=== PATIENT | male | born 1970 | race African-American/Black ===

== ENCOUNTER 2020-12-17 16:31 | Emergency (ER) | payer MEDICAID ==
[2020-12-17] MEDS ORDERED: Sodium Chloride 0.9% 10 ML Syringe FLUSH PRN (16:39)
[2020-12-17] MEDS ORDERED: Sodium Chloride 0.9% 2.5 ML Syringe FLUSH PRN (16:39)
[2020-12-17] MEDS ORDERED: Aspirin 81 MG Tab.Chew PO ONE (16:39)
[2020-12-17] MEDS ORDERED: Pantoprazole 80 MG in Sodium Chloride 0.9% 20 ML IVPUSH ONE (16:39)
[2020-12-17] MEDS ORDERED: Sodium Chloride 0.9% 1,000 ML IV ONE (16:39)
[2020-12-17] MEDS ORDERED: Ondansetron 4 MG/2 ML SDV IVPUSH ONE (16:44)
[2020-12-17] MEDS ORDERED: Morphine 4 MG/ML Syringe IVPUSH ONE ×2 (16:44→18:51)
--- NOTE | 2020-12-17 16:47 | PCM.EKG ---
#1 Interpretation EKG Date: 12/17/20 Time: 16:31 Rhythm: NSR Rate (Beats/Min): 68 [place]: Normal P-Wave: Present QRS: Normal ST-T: Normal QT: Normal GA/PQ Interval: 175 EKG Interpretation Comments: TWI lead III
--- NOTE | 2020-12-17 16:47 | EDM.PDOC ---
ED HPI GENERAL MEDICAL PROBLEM - General Chief Complaint: Chest Pain Stated Complaint: CHEST PAIN, BACK PAIN, VOMITTING Time Seen by Provider: 12/17/20 16:33 Source of Information: Reports: Patient History Limitations: Reports: No Limitations - History of Present Illness INITIAL COMMENTS - FREE TEXT/NARRATIVE: HISTORY AND PHYSICAL: History of present illness: Patient is a 50-year-old male who presents to the emergency room with complaints of midsternal chest pain, right distal scapular back pain, nausea and vomiting. He states symptoms started last night with the back pain that now radiates into his midsternal chest. Since this morning he has not been able to keep any food or fluids down. He did take a nap this afternoon and felt that that had improved his pain but pain returned once he got up. States he had similar symptoms a few years ago and was told he has "stomach ulcers". States he had a procedure (doesn't recall what - thinks it was an endoscopy) that "helped alot". Prior to yesterday he has not had any issues or complaints. Patient denies any fever, chills, headache, change in vision, syncope or near syncope. Denies any diaphoresis, shortness of breath or cough. Denies any abdominal pain, diarrhea, constipation or dysuria. Has not noted any blood in urine or stool. Patient has been eating and drinking appropriately. Review of systems: As per history of present illness and below otherwise all systems reviewed and negative. Past medical history: As per history of present illness and as reviewed below otherwise noncontributory. Surgical history: As per history of present illness and as reviewed below otherwise noncontributory. Social history: See social history for further information Family history: As per history of present illness and as reviewed below otherwise noncontributory. Physical exam: General: Well developed and well nourished. Alert and orientated x 3. Nontoxic in appearance and in no acute distress. Vital signs are stable and have been reviewed by me. Nursing notes were reviewed. HEENT: Atraumatic, normocephalic, pupils equal and reactive bilaterally, negative for conjunctival pallor or scleral icterus, mucous membranes moist, trachea midline. No drooling or trismus noted. No meningeal signs. No hot potato voice noted. Lungs: Clear to auscultation bilaterally. No wheezes, rales, or rhonchi. Chest nontender. Normal work of breathing, no accessory muscles used. Heart: S1S2, regular rate and rhythm without overt murmur, gallops, or rubs. No JVD. No peripheral edema Abdomen: Soft, nondistended, RUQ tenderness with palpation. Normoactive bowel sounds. Negative for masses or costovertebral tenderness. Pelvis: Stable nontender. Genitourinary/Rectal: Deferred. Skin: Intact, warm, dry. No lesions or rashes noted. Hematologic: No petechiae or purpra. Mucosa appropriate color and normal nail bed color and refill. Extremities: Atraumatic, moves all extremities per self without difficulty or deficits, negative for cords or calf pain. Neurovascular unremarkable. Neuro: Awake, alert, oriented. Cranial nerves II through XII unremarkable. Cerebellum unremarkable. Motor and sensory unremarkable throughout. Exam nonfocal. Psychiatric: Mood and affect are appropriate. Normal thought process. Answering questions appropriately. Notes: *This patient was seen and evaluated during the 2019 SARS-CoV-2 novel coronavirus pandemic period. Community viral transmission is ongoing at time of this encounter and the emergency department is operating under pandemic response procedures. Patient is a 50-year-old male who presents to the emergency room with complaints of back pain that radiates to his midsternal chest, nausea and vomiting. Patient states he had similar symptoms several years ago which ended up being ulcers. He does not associate this with eating although he does have some right upper quadrant tenderness. Due to it being after hours I am unable to get an ultrasound but I will do a CT of the chest and abdomen to rule out dissection or any further complications from the reported chest pain. CT shows no intramural or mediastinal hematoma. No thoracic aortic aneurysm, dissection, or evidence on CT for right heart strain. No thoracic lymphadenopathy or acute airspace disease.There is no abdominal aortic aneurysm, dissection, or retroperitoneal hematoma/fat stranding. Visceral artery branches are patent. No findings are seen on CT to explain the patient`s symptoms I have talked with the patient about today's findings, in addition to providing specific details for plan of care. I did offer him admission which he declines. He states he does feel improved. Reassessment at the time of disposition demonstrates that the patient is in no acute distress. The patient is stable for discharge, counseling was provided and we discussed in great detail signs and symptoms that would prompt them to return to the Emergency Department. We did discuss following up with cardiology and general surgery for endoscopy as he does have concerns for GERD. Medication, follow up and supportive care measures were reviewed and discussed. Voices understanding and is agreeable to plan of ca re. Denies any further questions or concerns at this time. Diagnostics: CBC, CMP, troponin, D-dimer, chest x-ray, EKG Therapeutics: IV fluid, aspirin, Protonix Prescription: Omeprazole Impression: Dehydration Non-specific chest pain GERD Plan: 1. You were evaluated today on an emergent basis. Your lab work is unremarkable. CT of your chest shows no acute findings. I would like you to monitor you symptoms, you may need to follow up with a dietitian consultant for your cardiac needs. I would like you to follow up with general surgeon for a endoscopy. Take omeprazole as directed. 2. You can alternate Tylenol and ibuprofen as needed for pain and fever management. 3. We encourage you to follow up with your primary care provider and/or recommended specialist in the next few days for re-evaluation and further care/management. 4. If your symptoms should worsen, new symptoms develop or any of the signs and symptoms we discussed should arise please return to the emergency room or call 911 (if needed). Definitive disposition and diagnosis as appropriate pending reevaluation and review of above. chest Pain Score (Numeric/FACES): 7 - Related Data Allergies Allergy/AdvReac Type Severity Reaction Status Date / Time ibuprofen Allergy Nausea Verified 12/17/20 16:57 Home Meds: Home Meds . [No Known Home Meds] 12/17/20 [History] ED ROS GENERAL - Review of Systems Review Of Systems: Comprehensive ROS is negative, except as noted in HPI. ED EXAM, GI/ABD - Physical Exam Exam: See Below (See dictation) Course - Vital Signs Last Recorded V/S: Last Vital Signs Temp 97.4 F 12/17/20 16:35 Pulse 63 12/17/20 19:59 Resp 16 12/17/20 19:59 BP 139/96 H 12/17/20 19:59 Pulse Ox 98 12/17/20 19:59 - Orders/Labs/Meds Orders: Active Orders 24 hr Category Date Time Status Saline Lock Insert [OM.PC] Stat Oth 12/17/20 16:39 Ordered Labs: Laboratory Tests 08/08/0412/17/20 12/17/20 Range/Units 16:45 16:45 16:45 WBC 9.48 (4.0-11.0) K/uL RBC 5.67 (4.50-5.90) M/uL Hgb 17.8 H (13.0-17.0) g/dL Hct 51.2 H (38.0-50.0) % MCV 90.3 (80.0-98.0) fL MCH 31.4 (27.0-32.0) pg MCHC 34.8 (31.0-37.0) g/dL RDW Std Deviation 45.0 (28.0-62.0) fl RDW Coeff of Na 14 (11.0-15.0) % Plt Count 238 (150-400) K/uL MPV 11.20 (7.40-12.00) fL Neut % (Auto) 58.7 (48.0-80.0) % Lymph % (Auto) 32.0 (16.0-40.0) % Tripp % (Auto) 7.7 (0.0-15.0) % Eos % (Auto) 1.1 (0.0-7.0) % Baso % (Auto) 0.5 (0.0-1.5) % Neut # (Auto) 5.6 (1.4-5.7) K/uL Lymph # (Auto) 3.0 H (0.6-2.4) K/uL Tripp # (Auto) 0.7 (0.0-0.8) K/uL Eos # (Auto) 0.1 (0.0-0.7) K/uL Baso # (Auto) 0.1 (0.0-0.1) K/uL Nucleated RBC % 0.0 /100WBC Nucleated RBCs # 0 K/uL D-Dimer, Quantitative 0.37 (0.0-0.50) mg/L FEU Sodium 138 (136-148) mmol/L Potassium 3.4 L (3.5-5.1) mmol/L Chloride 99 (98-107) mmol/L Carbon Dioxide 33.7 H (21.0-32.0) mmol/L BUN 18 (7.0-18.0) mg/dL Creatinine 1.3 (0.8-1.3) mg/dL Est Cr Clr Drug Dosing 62.15 mL/min Estimated GFR (MDRD) > 60.0 ml/min Glucose 150 H (74-106) mg/dL Calcium 9.4 (8.5-10.1) mg/dL Total Bilirubin 1.0 (0.2-1.0) mg/dL AST 14 L (15-37) IU/L ALT 24 (14-63) IU/L Alkaline Phosphatase 122 H (46-116) U/L Troponin I < 0.050 (0.000-0.056) ng/mL Total Protein 7.2 (6.4-8.2) g/dL Albumin 3.8 (3.4-5.0) g/dL Globulin 3.4 (2.6-4.0) g/dL Albumin/Globulin Ratio 1.1 (0.9-1.6) Urine Color Urine Appearance Urine pH (5.0-8.0) Ur Specific [place] (1.001-1.035) Urine Protein (NEGATIVE) mg/dL Urine Glucose (UA) (NEGATIVE) mg/dL Urine Ketones (NEGATIVE) mg/dL Urine Occult Blood (NEGATIVE) Urine Nitrite (NEGATIVE) Urine Bilirubin (NEGATIVE) Urine Urobilinogen (<2.0) EU/dL Ur Leukocyte Esterase (NEGATIVE) Urine RBC (0-2/HPF) Urine WBC (0-5/HPF) Ur Epithelial Cells (NONE-FEW) Urine Bacteria (NEGATIVE) Urine Mucus (NONE-MOD) 12/17/20 Range/Units 18:28 WBC (4.0-11.0) K/uL RBC (4.50-5.90) M/uL Hgb (13.0-17.0) g/dL Hct (38.0-50.0) % MCV (80.0-98.0) fL MCH (27.0-32.0) pg MCHC (31.0-37.0) g/dL RDW Std Deviation (28.0-62.0) fl RDW Coeff of Na (11.0-15.0) % Plt Count (150-400) K/uL MPV (7.40-12.00) fL Neut % (Auto) (48.0-80.0) % Lymph % (Auto) (16.0-40.0) % Tripp % (Auto) (0.0-15.0) % Eos % (Auto) (0.0-7.0) % Baso % (Auto) (0.0-1.5) % Neut # (Auto) (1.4-5.7) K/uL Lymph # (Auto) (0.6-2.4) K/uL Tripp # (Auto) (0.0-0.8) K/uL Eos # (Auto) (0.0-0.7) K/uL Baso # (Auto) (0.0-0.1) K/uL Nucleated RBC % /100WBC Nucleated RBCs # K/uL D-Dimer, Quantitative (0.0-0.50) mg/L FEU Sodium (136-148) mmol/L Potassium (3.5-5.1) mmol/L Chloride (98-107) mmol/L Carbon Dioxide (21.0-32.0) mmol/L BUN (7.0-18.0) mg/dL Creatinine (0.8-1.3) mg/dL Est Cr Clr Drug Dosing mL/min Estimated GFR (MDRD) ml/min Glucose (74-106) mg/dL Calcium (8.5-10.1) mg/dL Total Bilirubin (0.2-1.0) mg/dL AST (15-37) IU/L ALT (14-63) IU/L Alkaline Phosphatase (46-116) U/L Troponin I (0.000-0.056) ng/mL Total Protein (6.4-8.2) g/dL Albumin (3.4-5.0) g/dL Globulin (2.6-4.0) g/dL Albumin/Globulin Ratio (0.9-1.6) Urine Color YELLOW Urine Appearance CLEAR Urine pH 6.0 (5.0-8.0) Ur Specific [place] 1.025 (1.001-1.035) Urine Protein TRACE H (NEGATIVE) mg/dL Urine Glucose (UA) NEGATIVE (NEGATIVE) mg/dL Urine Ketones NEGATIVE (NEGATIVE) mg/dL Urine Occult Blood NEGATIVE (NEGATIVE) Urine Nitrite NEGATIVE (NEGATIVE) Urine Bilirubin NEGATIVE (NEGATIVE) Urine Urobilinogen 0.2 (<2.0) EU/dL Ur Leukocyte Esterase NEGATIVE (NEGATIVE) Urine RBC 0-1 (0-2/HPF) Urine WBC 1-2 (0-5/HPF) Ur Epithelial Cells FEW (NONE-FEW) Urine Bacteria RARE (NEGATIVE) Urine Mucus MODERATE (NONE-MOD) Meds: Medications Discontinued Medications Generic Name Dose Route Start Last Admin Trade Name Freq PRN Reason Stop Dose Admin Aspirin 324 mg 12/17/20 16:39 12/17/20 17:05 Aspirin 81 Mg Tab.Chew PO 12/17/20 16:40 324 mg ONETIME ONE Administration Sodium Chloride 1,000 mls @ 999 mls/hr 12/17/20 16:39 12/17/20 17:04 Normal Saline IV 12/17/20 17:39 999 mls/hr STAT ONE Administration Pantoprazole Sodium 80 mg/ 20 mls @ 420 mls/hr 12/17/20 16:39 12/17/20 17:05 Sodium Chloride IVPUSH 12/17/20 16:41 420 mls/hr ONETIME ONE Administration Iopamidol 100 ml 12/17/20 18:42 Iopamidol 755 Mg/Ml 100 Ml Bottle IVPUSH 12/17/20 18:43 ONETIME ONE Iopamidol 75 ml 12/17/20 18:44 12/17/20 18:45 Iopamidol 755 Mg/Ml 100 Ml Bottle IVPUSH 12/17/20 18:45 75 ml ONETIME STA Administration Morphine Sulfate 4 mg 12/17/20 16:44 12/17/20 17:05 Morphine 4 Mg/Ml Syringe IVPUSH 12/17/20 16:45 4 mg ONETIME ONE Administration Morphine Sulfate 4 mg 12/17/20 18:51 12/17/20 19:31 Morphine 4 Mg/Ml Syringe IVPUSH 12/17/20 18:52 4 mg ONETIME ONE Administration Ondansetron HCl 4 mg 12/17/20 16:44 12/17/20 17:05 Ondansetron 4 Mg/2 Ml Sdv IVPUSH 12/17/20 16:45 4 mg ONETIME ONE Administration Sodium Chloride 10 ml 12/17/20 16:39 12/17/20 17:09 Sodium Chloride 0.9% 10 Ml Syringe FLUSH 10 ml ASDIRECTED PRN Administration Keep Vein Open Sodium Chloride 2.5 ml 12/17/20 16:39 12/17/20 17:09 Sodium Chloride 0.9% 2.5 Ml Syringe FLUSH 2.5 ml ASDIRECTED PRN Administration Keep Vein Open Departure - Departure Time of Disposition: 19:56 Disposition: Home, Self-Care 01 Clinical Impression: GERD (gastroesophageal reflux disease), Nonspecific chest pain, Dehydration - Discharge Information Instructions: Heartburn, Bdlk-am-Aray, Dehydration, Adult, [id number], Nonspecific Chest Pain, Adult, [id number] Referrals: PCP,None [Primary Care Provider] - Forms: ED Department Discharge Additional Instructions: The following information is given to patients seen in the emergency department who are being discharged to home. This information is to outline your options for follow-up care. We provide all patients seen in our emergency department with a follow-up referral. The need for follow-up, as well as the timing and circumstances, are variable depending upon the specifics of your emergency department visit. If you don't have a primary care physician on staff, we will provide you with a referral. We always advise you to contact your personal physician following an emergency department visit to inform them of the circumstance of the visit and for follow-up with them and/or the need for any referrals to a consulting specialist. The emergency department will also refer you to a specialist when appropriate. This referral assures that you have the opportunity for follow-up care with a specialist. All of these measure are taken in an effort to provide you with optimal care, which includes your follow-up. Under all circumstances we always encourage you to contact your private physician who remains a resource for coordinating your care. When calling for follow-up care, please make the office aware that this follow-up is from your recent emergency room visit. If for any reason you are refused follow-up, please contact the [facility] Emergency Department at and asked to speak to the emergency department charge nurse. [facility] [address] [place] [id number] [facility] [address] [place] [id number] Thank you for choosing the [facility] emergency department in [place] for your medical needs today. It was a pleasure caring for you. Today you were seen in the emergency department for chest pain and GERD. 1. You were evaluated today on an emergent basis. Your lab work is unremarkable. CT of your chest shows no acute findings. I would like you to monitor you symptoms, you may need to follow up with a dietitian consultant for your cardiac needs. I would like you to follow up with general surgeon for a endoscopy. Take omeprazole as directed. 2. You can alternate Tylenol and ibuprofen as needed for pain and fever management. 3. We encourage you to follow up with your primary care provider and/or recommended specialist in the next few days for re-evaluation and further care/management. 4. If your symptoms should worsen, new symptoms develop or any of the signs and symptoms we discussed should arise please return to the emergency room or call 911 (if needed). - My Orders Last 24 Hours: My Active Orders 12/17/20 16:39 Saline Lock Insert [OM.PC] Stat - Assessment/Plan Last 24 Hours: My Active Orders 12/17/20 16:39 Saline Lock Insert [OM.PC] Stat
--- NOTE | 2020-12-17 17:23 | CR ---
Indication: The chest Pain Comparison: None available. Technique: Single AP view chest Findings: There is an elevated right hemidiaphragm with likely adjacent compressive atelectasis. There is no focal consolidation, effusion, or pneumothorax. The cardiac silhouette is mildly prominent. The bony thorax is grossly intact. Impression: There is no elevated right hemidiaphragm with basilar atelectasis. Otherwise, no dense consolidation is appreciated. Dictated by Braydon Garrison MD @ 12/17/2020 5:23:[address] Braydon Garrison @ Dec 17 2020 5:23PM
[2020-12-17 17:24] LABS: BLOOD UREA NITROGEN,BUN 18 mg/dL (7.0-18.0); CARBON DIOXIDE,CO2 33.7 mmol/L (21.0-32.0); CHLORIDE,CL 99 mmol/L (98-107); GLUCOSE RANDOM 150 mg/dL (74-106); POTASSIUM,K 3.4 mmol/L (3.5-5.1); SODIUM,NA 138 mmol/L (136-148)
[2020-12-17] MEDS ORDERED: Iopamidol 755 Mg/ML 100 ML Bottle IVPUSH ONE (18:42)
[2020-12-17] MEDS ORDERED: Iopamidol 755 Mg/ML 100 ML Bottle IVPUSH STA (18:44)
--- NOTE | 2020-12-17 19:29 | CT ---
HISTORY: Chest pain with radiation to the right scapula. Right upper quadrant abdominal pain. COMPARISON: Chest 1 view, 12/17/2020. TECHNIQUE: CT angiogram of the chest. 75 cc of Isovue-[address] was also performed prior to the injection. Coronal/sagittal reconstruction images. FINDINGS: The noncontrast images demonstrate no intramural or mediastinal hematoma. There is no pleural or pericardial effusion. There are nonenlarged lymph nodes present within the mediastinum, seen primarily at stations 4R and 4L. The CTA images demonstrate no thoracic aortic dissection flap. There is motion artifact at the aortic root. The brachiocephalic trunk, left common carotid artery, and left subclavian artery are normal in caliber. Ascending thoracic aorta measures 33 mm in dimension. This is within normal limits. The contrast bolus is not intended for pulmonary emboli evaluation. The main pulmonary artery is normal in caliber. There is no evidence for right heart strain. The lung windows demonstrate no endobronchial mass. There is no bronchiectasis. There is dependent atelectasis. There is no honeycomb formation. There is no traction bronchiectasis. 3 mm left upper lobe pulmonary nodule on image 46 of series 202. This is of doubtful significance. There is no suspicious pulmonary nodule or acute airspace disease. Evaluation of the upper abdomen demonstrates no adrenal mass. Symmetric nephrograms. The celiac axis, SMA, and OMAR are patent. The included segments of the liver, gallbladder, spleen, and pancreas are normal. There is no upper abdominal lymphadenopathy. The bone windows demonstrate degenerative disc disease, which is minor. No suspicious bone lesions are seen. Vertebral body heights are maintained on sagittal reconstruction images. Manubrium and body of the sternum are intact. IMPRESSION: 1. No intramural or mediastinal hematoma. 2. No thoracic aortic aneurysm, dissection, or evidence on CT for right heart strain. 3. No thoracic lymphadenopathy or acute airspace disease. Please note that all CT scans at this facility use dose modulation, iterative reconstruction, and/or weight-based dosing when appropriate to reduce radiation dose to as low as reasonably achievable. Dictated by Jonathan Hernandez MD @ 12/17/2020 7:27:[address] Jonathan Hernandez @ Dec 17 2020 7:27PM
--- NOTE | 2020-12-17 19:44 | CT ---
HISTORY: Chest pain with radiation to the scapula. COMPARISON: CT angiogram of the chest, 12/17/2020. TECHNIQUE: CT angiogram of the abdomen. 75 cc of Isovue-370 IV. Coronal/sagittal reconstruction images. FINDINGS: Lung bases: There is no pleural or pericardial effusion. The heart size is normal. By the age the dependent atelectasis. There is no suspicious pulmonary nodule or basilar pneumothorax. Abdomen: The abdominal aorta, celiac axis, SMA, and OMAR are patent. There is no dissection flap. There is no aneurysm or retroperitoneal stranding/hematoma. The renal arteries are patent bilaterally. The included segments of the kidneys, adrenal glands, spleen, and pancreas are normal. There is no pancreatic glandular atrophy. There is no common bile duct stone or mass. No inflammatory changes adjacent to the gallbladder. There is a non cirrhotic liver morphology. There is no perihepatic ascites. There is no abdominal lymphadenopathy. The included segments of the small bowel and colon are normal in caliber. There is no gastric or duodenal wall thickening. The bone windows demonstrate no suspicious bone lesions. There is degenerative disc disease in the lumbar spine. On sagittal reconstruction images, the vertebral body heights are maintained. IMPRESSION: 1. There is no abdominal aortic aneurysm, dissection, or retroperitoneal hematoma/fat stranding. 2. Visceral artery branches are patent. 3. No findings are seen on CT to explain the patient`s symptoms. Please note that all CT scans at this facility use dose modulation, iterative reconstruction, and/or weight-based dosing when appropriate to reduce radiation dose to as low as reasonably achievable. Dictated by Jonathan Hernandez MD @ 12/17/2020 7:43:[address] Jonathan Hernandez @ Dec 17 2020 7:43PM
== END 2020-12-17 20:06 | disposition home or self-care (01) ==
LOC: MW.ED 16:31
DX: E86.0 Dehydration (principal); K21.9 Gastro-esophageal reflux disease without esophagitis; Z88.6 Allergy status to analgesic agent
CPT/HCPCS: 36415; 71045; 71275; 74175; 80053; 81001; 84484; 85025; 85379; 93005; 96374; 96375; 96376; 99285; A9270; C9113; J2270; J2405; J7030; Q9967

== ENCOUNTER 2020-12-27 20:10 | Emergency (ER) | payer MEDICAID ==
--- NOTE | 2020-12-27 20:30 | EDM.PDOC ---
ED HPI GENERAL MEDICAL PROBLEM - General Chief Complaint: Back Pain or Injury Stated Complaint: BACK PAIN, NAUSEA Time Seen by Provider: 12/27/20 20:30 Source of Information: Reports: Patient History Limitations: Reports: No Limitations - History of Present Illness INITIAL COMMENTS - FREE TEXT/NARRATIVE: HISTORY AND PHYSICAL: History of present illness: Patient is a 50-year-old male who presents to the emergency room with complaints of right sided scapular/back pain and nausea. I did see this patient on 12/17/2020. During that time he was having epigastric pain that radiated into his back. Patient did have a full work-up and was prescribed omeprazole as it was concerning that he may have GERD and/or gallbladder disease. Patient states he never picked up the omeprazole as he was unaware of this prescription. States the back pain is similar to when he was seen in the ER on that day. 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 Patient denies any fever, chills, headache, change in vision, syncope or near syncope. Denies any chest pain, shortness of breath or cough. Denies any abdominal pain, vomiting, diarrhea, constipation or dysuria. Has not noted any blood in urine or stool. Patient has been eating and drinking appropriately. Review of systems: As per history of present illness and below otherwise all systems reviewed and negative. Past medical history: As per history of present illness and as reviewed below otherwise noncontributory. Surgical history: As per history of present illness and as reviewed below otherwise noncontributory. Social history: See social history for further information Family history: As per history of present illness and as reviewed below otherwise nonco ntributory. Physical exam: General: Well developed and well nourished. Alert and orientated x 3. Nontoxic in appearance and in no acute distress. Vital signs are stable and have been reviewed by me. Nursing notes were reviewed. HEENT: Atraumatic, normocephalic, pupils equal and reactive bilaterally, negative for conjunctival pallor or scleral icterus, mucous membranes moist, trachea midline. No drooling or trismus noted. No meningeal signs. No hot potato voice noted. Lungs: Clear to auscultation bilaterally. No wheezes, rales, or rhonchi. Chest nontender. Normal work of breathing, no accessory muscles used. Heart: S1S2, regular rate and rhythm without overt murmur, gallops, or rubs. No JVD. No peripheral edema Abdomen: Soft, nondistended, nontender. Normoactive bowel sounds. Negative for masses or costovertebral tenderness. Skin: Intact, warm, dry. No lesions or rashes noted. Hematologic: No petechiae or purpra. Mucosa appropriate color and normal nail bed color and refill. Extremities: Atraumatic, moves all extremities per self without difficulty or deficits, negative for cords or calf pain. Neurovascular unremarkable. Neuro: Awake, alert, oriented. Cranial nerves II through XII unremarkable. Cerebellum unremarkable. Motor and sensory unremarkable throughout. Exam nonfocal. Psychiatric: Mood and affect are appropriate. Normal thought process. Answering questions appropriately. Notes: *This patient was seen and evaluated during the 2019 SARS-CoV-2 novel coronavirus pandemic period. Community viral transmission is ongoing at time of this encounter and the emergency department is operating under pandemic response procedures. 12/17/2020: CT of the chest/abdomen/pelvis shows no abdominal aortic aneurysm, dissection or retroperitoneal hematoma/fat stranding. Visceral artery branches are patent. No intramural or mediastinal hematoma. No evidence of right heart strain. No thoracic lymphadenopathy or acute airspace disease. No findings on CT to explain patient's symptoms. He had a full cardiac work-up including EKG, troponin and D-dimer which were within normal limits. Patient is a 50-year-old male who presents to the emergency room with complaints of right mid back pain. He states he thinks it is "a pulled muscle or something". I did see this patient on 12/17/2020 and he had a full cardiac work- up including angiogram. He was given a prescription for omeprazole as he felt that it was GERD/stomach ulcer related. He did not get this medication filled as he states he didn't know about it. Encouraged him to follow-up with GI or general surgery, which he has yet to make an appointment. Today's lab work is nonspecific. Due to him having a full work-up ruling out dissection/aneurysm/MA, will not repeat any further imaging today. I did have Dr Wilson review chart, agreeable with plan of care. I have talked with the patient about today's findings, in addition to providing specific details for plan of care. Reassessment at the time of disposition demonstrates that the patient is in no acute distress. The patient is stable for discharge, counseling was provided and we discussed in great detail signs and symptoms that would prompt them to return to the Emergency Department. Medication, follow up and supportive care measures were reviewed and discussed. Voices understanding and is agreeable to plan of care. Denies any further questions or concerns at this time. Diagnostics: CBC, CMP, UA, Troponin, EKG, CXR Therapeutics: GI cocktail, Norflex Prescription: Omeprazole, Flexeril Impression: Muscular Strain Plan: 1. You were evaluated today on an emergent basis. Your lab work, EKG, and chest x-ray are unremarkable. On your last ER visit you had a full cardiac work-up including CT angiogram of your chest/abdomen/pelvis. You were also given a prescription for omeprazole, to help with your reflux/stomach ulcers. Please pick this medication up and take it as directed. 2. You can alternate Tylenol and ibuprofen as needed for pain and fever management. 3. We encourage you to follow up with your primary care provider and/or recommended specialist in the next few days for re-evaluation and further care/management. 4. If your symptoms should worsen, new symptoms develop or any of the signs and symptoms we discussed should arise please return to the emergency room or call 911 (if needed). Definitive disposition and diagnosis as appropriate pending reevaluation and review of above. back area Pain Score (Numeric/FACES): 7 - Related Data Allergies Allergy/AdvReac Type Severity Reaction Status Date / Time ibuprofen Allergy Nausea Verified 12/27/20 20:22 Home Meds: Home Meds Cyclobenzaprine [Flexeril] 10 mg PO TID PRN #21 tab 12/27/20 [Rx] Omeprazole 20 mg PO DAILY 30 Days #30 tablet. 12/27/20 [Rx] Past Medical History - Past Health History Medical/Surgical History: Denies Medical/Surgical History HEENT History: Reports: None Cardiovascular History: Reports: None Respiratory History: Reports: None Gastrointestinal History: Reports: Other (See Below) Other Gastrointestinal History: "stomach ulcers" Genitourinary History: Reports: None Musculoskeletal History: Reports: None Neurological History: Reports: None Psychiatric History: Reports: None Endocrine/Metabolic History: Reports: None Hematologic History: Reports: None Immunologic History: Reports: None Oncologic (Cancer) History: Reports: None Dermatologic History: Reports: None - Infectious Disease History Infectious Disease History: Reports: None - Past Surgical History Head Surgeries/Procedures: Reports: None Social & Family History - Family History Family Medical History: No Pertinent Family History - Caffeine Use Caffeine Use: Reports: None ED ROS GENERAL - Review of Systems Review Of Systems: Comprehensive ROS is negative, except as noted in HPI. ED EXAM,LOWER BACK PAIN/INJURY - Physical Exam Exam: See Below (See dictation) Course - Vital Signs Last Recorded V/S: Last Vital Signs Temp 97.1 F 12/27/20 20:30 Pulse 71 12/27/20 21:23 Resp 20 12/27/20 21:23 BP 149/86 H 12/27/20 21:23 Pulse Ox 96 12/27/20 21:23 - Orders/Labs/Meds Orders: Active Orders 24 hr Category Date Time Status EKG Documentation Completion [RC] STAT Care 12/27/20 20:32 Active Chest 1V Frontal [CR] Stat Exams 12/27/20 20:35 Taken Labs: Laboratory Tests 12/27/20 12/27/20 12/27/20 Range/Units 20:55 20:55 21:24 WBC 8.85 (4.0-11.0) K/uL RBC 5.42 (4.50-5.90) M/uL Hgb 17.0 (13.0-17.0) g/dL Hct 48.3 (38.0-50.0) % MCV 89.1 (80.0-98.0) fL MCH 31.4 (27.0-32.0) pg MCHC 35.2 (31.0-37.0) g/dL RDW Std Deviation 44.6 (28.0-62.0) fl RDW Coeff of Na 14 (11.0-15.0) % Plt Count 246 (150-400) K/uL MPV 11.00 (7.40-12.00) fL Neut % (Auto) 69.3 (48.0-80.0) % Lymph % (Auto) 22.6 (16.0-40.0) % [place] % (Auto) 6.9 (0.0-15.0) % Eos % (Auto) 0.7 (0.0-7.0) % Baso % (Auto) 0.5 (0.0-1.5) % Neut # (Auto) 6.1 H (1.4-5.7) K/uL Lymph # (Auto) 2.0 (0.6-2.4) K/uL [place] # (Auto) 0.6 (0.0-0.8) K/uL Eos # (Auto) 0.1 (0.0-0.7) K/uL Baso # (Auto) 0.0 (0.0-0.1) K/uL Nucleated RBC % 0.0 /100WBC Nucleated RBCs # 0 K/uL Sodium 144 (136-148) mmol/L Potassium 4.2 (3.5-5.1) mmol/L Chloride 104 (98-107) mmol/L Carbon Dioxide 31.3 (21.0-32.0) mmol/L BUN 18 (7.0-18.0) mg/dL Creatinine 1.3 (0.8-1.3) mg/dL Est Cr Clr Drug Dosing 62.15 mL/min Estimated GFR (MDRD) > 60.0 ml/min Glucose 140 H (74-106) mg/dL Calcium 10.0 (8.5-10.1) mg/dL Total Bilirubin 0.9 (0.2-1.0) mg/dL AST 17 (15-37) IU/L ALT 29 (14-63) IU/L Alkaline Phosphatase 135 H (46-116) U/L Troponin I < 0.050 (0.000-0.056) ng/mL Total Protein 7.4 (6.4-8.2) g/dL Albumin 4.0 (3.4-5.0) g/dL Globulin 3.4 (2.6-4.0) g/dL Albumin/Globulin Ratio 1.2 (0.9-1.6) Urine Color YELLOW Urine Appearance CLEAR Urine pH 8.5 H (5.0-8.0) Ur Specific [place] 1.020 (1.001-1.035) Urine Protein 30 H (NEGATIVE) mg/dL Urine Glucose (UA) NEGATIVE (NEGATIVE) mg/dL Urine Ketones TRACE H (NEGATIVE) mg/dL Urine Occult Blood NEGATIVE (NEGATIVE) Urine Nitrite NEGATIVE (NEGATIVE) Urine Bilirubin NEGATIVE (NEGATIVE) Urine Urobilinogen 1.0 (<2.0) EU/dL Ur Leukocyte Esterase NEGATIVE (NEGATIVE) Urine RBC 0-1 (0-2/HPF) Urine WBC 0-1 (0-5/HPF) Ur Epithelial Cells RARE (NONE-FEW) Urine Bacteria RARE (NEGATIVE) Meds: Medications Discontinued Medications Generic Name Dose Route Start Last Admin Trade Name Freq PRN Reason Stop Dose Admin Al Hydroxide/Mg Hydroxide 15 0 ml 12/27/20 20:32 12/27/20 20:50 ml/ Metoclopramide HCl 5 mg/ PO 12/27/20 20:33 25 each Lidocaine HCl 5 ml ONETIME ONE Administration Hydromorphone HCl 1 mg 12/27/20 20:34 12/27/20 21:18 Hydromorphone 1 Mg/Ml Syringe IM 12/27/20 20:35 Not Given ONETIME ONE Orphenadrine Citrate 60 mg 12/27/20 21:33 12/27/20 21:42 Orphenadrine 60 Mg/2 Ml Inj IM 12/27/20 21:34 60 mg ONETIME ONE Administration Departure - Departure Time of Disposition: 21:57 Disposition: Home, Self-Care 01 Clinical Impression: Muscle strain - Discharge Information Prescriptions: Cyclobenzaprine [Flexeril] 10 mg PO TID PRN #21 tab PRN Reason: Muscle Spasm Omeprazole 20 mg PO DAILY 30 Days #30 tablet. Instructions: Muscle Strain, [id number] Referrals: PCP,None [Primary Care Provider] - Forms: ED Department Discharge Additional Instructions: The following information is given to patients seen in the emergency department who are being discharged to home. This information is to outline your options for follow-up care. We provide all patients seen in our emergency department with a follow-up referral. The need for follow-up, as well as the timing and circumstances, are variable depending upon the specifics of your emergency department visit. If you don't have a primary care physician on staff, we will provide you with a referral. We always advise you to contact your personal physician following an emergency department visit to inform them of the circumstance of the visit and for follow-up with them and/or the need for any referrals to a consulting specialist. The emergency department will also refer you to a specialist when appropriate. This referral assures that you have the opportunity for follow-up care with a specialist. All of these measure are taken in an effort to provide you with optimal care, which includes your follow-up. Under all circumstances we always encourage you to contact your private juan jose bowerian who remains a resource for coordinating your care. When calling for follow-up care, please make the office aware that this follow-up is from your recent emergency room visit. If for any reason you are refused follow-up, please contact the [facility] Emergency Department at and asked to speak to the emergency department charge nurse. [facility] [address] [place] [id number] [address] Thank you for choosing the [facility] emergency department in [place] for your medical needs today. It was a pleasure caring for you. Today you were seen in the emergency department for back pain. 1. You were evaluated today on an emergent basis. Your lab work, EKG, and chest x-ray are unremarkable. On your last ER visit you had a full cardiac work-up including CT angiogram of your chest/abdomen/pelvis. You were also given a prescription for omeprazole, to help with your reflux/stomach ulcers. Please p ick this medication up and take it as directed. 2. You can alternate Tylenol and ibuprofen as needed for pain and fever management. 3. We encourage you to follow up with your primary care provider and/or recommended specialist in the next few days for re-evaluation and further care/management. 4. If your symptoms should worsen, new symptoms develop or any of the signs and symptoms we discussed should arise please return to the emergency room or call 911 (if needed). Sepsis Event Note (ED) - Focused Exam Vital Signs: Vital Signs Temp Pulse Resp BP Pulse Ox 12/27/20 21:23 71 20 149/86 H 96 12/27/20 20:30 97.1 F 58 L 18 152/95 H 97 - My Orders Last 24 Hours: My Active Orders 12/27/20 20:32 EKG Documentation Completion [RC] STAT 12/27/20 20:35 Chest 1V Frontal [CR] Stat - Assessment/Plan Last 24 Hours: My Active Orders 12/27/20 20:32 EKG Documentation Completion [RC] STAT 12/27/20 20:35 Chest 1V Frontal [CR] Stat
[2020-12-27] MEDS ORDERED: Alum Hydrox/Mag Hydrox/Simeth 15 ML, Metoclopramide 5 MG, Lidocaine 2% 5 ML PO ONE ×3 (20:32)
[2020-12-27] MEDS ORDERED: HYDROmorphone 1 MG/ML Syringe IM ONE (20:34)
--- NOTE | 2020-12-27 21:02 | PCM.EKG ---
#1 Interpretation EKG Date: 12/27/20 Time: 20:47 Rhythm: NSR Rate (Beats/Min): 69 ST-T: Normal
[2020-12-27 21:31] LABS: BLOOD UREA NITROGEN,BUN 18 mg/dL (7.0-18.0); CARBON DIOXIDE,CO2 31.3 mmol/L (21.0-32.0); CHLORIDE,CL 104 mmol/L (98-107); GLUCOSE RANDOM 140 mg/dL (74-106); POTASSIUM,K 4.2 mmol/L (3.5-5.1); SODIUM,NA 144 mmol/L (136-148)
[2020-12-27] MEDS ORDERED: Orphenadrine 60 MG/2 ML Inj IM ONE (21:33)
--- NOTE | 2020-12-27 23:14 | CR ---
INDICATION: pain/shortness of breath CHEST, ONE VIEW An AP radiograph of the chest was performed. Comparison: 12/17/2020. The lungs appear clear and no pleural effusions are identified. There is unchanged elevation of the right diaphragm. The cardiomediastinal silhouette and pulmonary vasculature appear normal, as do the visualized bones. IMPRESSION: No acute intrathoracic abnormality identified. GIANCARLO HERNANDEZ MD [employer] Dictated by: Alejandro Hernandez MD @ 12/27/2020 23:13:25 (Electronically Signed)
== END 2020-12-27 23:30 | disposition home or self-care (01) ==
LOC: MW.ED 20:10
DX: S29.012A Strain of muscle and tendon of back wall of thorax, initial encounter (principal); Z88.8 Allergy status to other drugs, medicaments and biological substances; Z79.899 Other long term (current) drug therapy; X50.0XXA Overexertion from strenuous movement or load, initial encounter
CPT/HCPCS: 36415; 71045; 80053; 81001; 84484; 85025; 93005; 96372; 99284; A9270; J2360

== ENCOUNTER 2021-01-26 16:29 | Emergency (ER) | payer MEDICAID ==
[2021-01-26] MEDS ORDERED: Morphine 4 MG/ML Syringe IVPUSH ONE (17:07)
[2021-01-26 17:20] LABS: BLOOD UREA NITROGEN,BUN 11 mg/dL (7.0-18.0); CARBON DIOXIDE,CO2 27.4 mmol/L (21.0-32.0); CHLORIDE,CL 103 mmol/L (98-107); GLUCOSE RANDOM 102 mg/dL (74-106); POTASSIUM,K 3.8 mmol/L (3.5-5.1); SODIUM,NA 138 mmol/L (136-148)
[2021-01-26] MEDS ORDERED: Magnesium Sulfate/Water 2 GM in Premix Bag 1 BAG IV ONE (17:24)
--- NOTE | 2021-01-26 17:24 | PCM.EKG ---
#1 Interpretation EKG Date: 01/26/21 Time: 16:27 Rhythm: NSR Rate (Beats/Min): 74 Parish: LAD-Left Parish Deviation P-Wave: Present QRS: Normal ST-T: Normal QT: Normal Comparison: No Change (12/27/20) EKG Interpretation Comments: Sinus Rhythm with LAD and occasional PVC
--- NOTE | 2021-01-26 17:27 | CR ---
HISTORY: Chest pain. Shortness of breath. TECHNIQUE: Portable frontal view the chest. COMPARISON: Chest x-ray 12/27/2020. FINDINGS: Unchanged elevation of the right hemidiaphragm. Mild atelectasis at the right lung base. No airspace consolidation. No pleural effusion or pneumothorax. Pulmonary vasculature is within normal limits. Cardiomediastinal silhouette is unchanged. IMPRESSION: No change. Mild right basilar atelectasis. Dictated by Ildefonso Jones MD @ 01/26/2021 5:25:29 PM (Electronically Signed)
[2021-01-26] MEDS ORDERED: Alum Hydrox/Mag Hydrox/Simeth 15 ML, Lidocaine 2% 5 ML PO ONE ×2 (17:44)
[2021-01-26] MEDS ORDERED: Aspirin 81 MG Tab.Chew PO ONE (17:44)
[2021-01-26] MEDS ORDERED: Magnesium Oxide 400 MG Tab PO ONE (17:47)
--- NOTE | 2021-01-26 17:47 | EDM.PDOC ---
<Marcus Bhat - Last Filed: 01/26/21 19:18> ED HPI GENERAL MEDICAL PROBLEM - General Chief Complaint: Chest Pain Stated Complaint: BACK PAIN, CHEST PAIN Time Seen by Provider: 01/26/21 16:34 - History of Present Illness INITIAL COMMENTS - FREE TEXT/NARRATIVE: CHIEF COMPLAINT(S): Chest pain HISTORY OF PRESENT ILLNESS: This is a 50-year-old man with reported past medical history of peptic ulcer disease/GERD who comes to the emergency department with a chief complaint of chest pain. The patient states that approximately 20 minutes prior to arrival he started to experience back pain and then developed 10 out of 10 chest pain which he described as sharp radiating to his back. He states that there was some associated shortness of breath but denies any fevers or chills. He denies any diaphoresis, nausea or vomiting. He denies any recent travel, recent surgery or prior study of DVT or PE. He states that he has had similar pain before. He states any when he was here he told us that he had a history of ulcers and similar symptoms in and out of [facility] and they did an EGD and diagnosed him with ulcers. He states that he was not on any medication after this and the pain resolved. He states that he was taking all his pain medications as prescribed. He denies any CAD, CHF. He denies any aggravating factors or relieving factors. He states that he currently rates his pain as 8 out of 10. He denies any numbness, tingling, weakness. REVIEW OF SYSTEMS: Constitutional: Denies fever, chills. Eyes: Denies eye pain Ears, Nose, Mouth, & Throat: Denies earache Cardiovascular: Positive for chest pain Respiratory: Denies shortness of breath Gastrointestinal: Denies Nausea, vomiting, diarrhea, hematochezia. Genitourinary: Denies hematuria Skin:Denies a rash MSK: Positive for middle back pain Neurological: Denies blurred vision, numbness, tingling, weakness Psychiatric: Denies depression PAST MEDICAL HISTORY: As per history of present illness and as reviewed below ot herwise noncontributory. SURGICAL HISTORY: As per history of present illness and as reviewed below otherwise noncontributory. SOCIAL HISTORY: As per history of present illness and as reviewed below otherwise noncontributory. FAMILY HISTORY: As per history of present illness and as reviewed below otherwise noncontributory. EXAMINATION OF ORGAN SYSTEMS/BODY AREAS: Constitutional: Blood pressure is 166/101, heart rate 75, respiratory rate 18 with an oxygen saturation 98% on room air. Temperature 35.9. General: Well-appearing man who is in no acute distress Psychiatric: Appropriate mood and affect. Eyes: No scleral icterus or conjunctival erythema ENMT: Moist mucous membranes. No pharyngeal erythema Cardiovascular: Regular, rate, and rhythm. No gallops, murmurs, or rubs. Bilateral upper extremity pulses symmetric and intact. No peripheral edema. No JVD. Respiratory: Lungs clear to auscultation bilaterally. No wheezes, rales, or rhonchi. Gastrointestinal: Soft, non-tender, non-distended. Normoactive bowel sounds Genitourinary: No suprapubic tenderness Musculoskeletal: Normal range of motion. Skin: No lesions or abrasions. Neurological: Alert, GCS 15 strength and sensation grossly intact in upper and lower extremities. MEDICAL DECISION MAKING AND COURSE IN THE ED WITH INTERPRETATION/REVIEW OF DIAGNOSTIC STUDIES: This is a 50-year-old man with a past medical history of peptic ulcer disease/GERD and multiple emergency department visits for chest pain with radiation to the back who comes to the emergency department with acute onset chest pain with radiation to his back who is hypertensive as compared to prior. At this time I did review the patient's chart and he has received CT abdomen pelvis and thorax in the past however he was not as hypertensive as today. Differential does include aortic dissection therefore we will obtain CT thorax, abdomen and pelvis to evaluate for dissection. EKG was obtained which is unchanged from prior but did have some PVCs. We will undergo a cardiac work- up given the patient's age. We will provide the patient with 4 mg of IV morphine, place the patient on cardiac monitoring, pulse oximetry. Laboratory: CBC is unremarkable. CMP reveals no abnormality. Troponin is negative. Magnesium is 1.7. INR is normal. The radiological images were viewed by myself along with reading the report from the radiologist. Chest x-ray does not reveal any acute cardiopulmonary process. There are some mild right basilar atelectasis. On reevaluation the patient stated that his pain is improved to 7 out of 10. He states "Hey doc, when you let me go can you get me some pain medications?" I did discuss with him at this time that we would have to reevaluate need for pain medication on discharge pending further work-up. After labs I did provide the patient with magnesium by mouth, GI cocktail and aspirin. I did discuss with him at this time that we will need a repeat troponin and that the CT was still pending. At the time of signout the patient CT was pending. He is pending repeat troponin and final disposition. Heart Score History: Moderately Suspicious (1) ECG: Non-specific repolarization (1) Age: 45-64 (1) Risk Factors: 1-2 (1) Initial Troponin: </= normal limit (0) Total Score: 4 moderate risk Wells Criteria Clinical signs/symptoms of DVT: No (0) PE #1 Dx or equally likely: No (0) Heart Rate >100: No (0) Immobilization for 3 days or surgery in last month: No (0) Previously Dx PE or DVT: No (0) Hemoptysis: No (0) Malignancy w/ Tx within 6 months or palliative: No (0) Wells Score: 0 DISPOSITION: Patient was signed out to oncoming night physician pending repeat troponin, angiogram of the chest abdomen and pelvis and final disposition. The patient is moderate risk. Therefore a discussion should be had about possible observation admission for chest pain versus outpatient follow-up. CONDITION: Serious PROCEDURES: Cardiac monitoring interpretation, pulse oximetry interpretation FINAL IMPRESSION(S)/DIAGNOSES: Acute chest pain Critical Care Procedure Note Authorized and performed by: Marcus Bhat M.D. Critical Care Time: 35 minutes Due to a high probability of clinically significant, life threatening deterioration, the patient required my highest level of preparedness to intervene emergently and I personally spent this critical care time directly and personally managing the patient. This critical care time included obtaining a history, examining the patient, pulse oximetry; ordering and review of studies; arranging urgent treatment with development of a management plan; evaluation of a patients reponse to treatment; frequent assessment; and discussions with other providers. This critical care time was performed to assess and manage the high probability of imminent, life threatening deterioration that could result in multiorgan failure. It was exclusive of separate billable procedures and treating other patients. Please see MDM section and rest of the note for further information on patient assessment and treatment. Please see MDM section and rest of the note for further information on patient assessment and treatment. Marcus Bhat M.D. Chest Pain Score (Numeric/FACES): 8 - Related Data Allergies Allergy/AdvReac Type Severity Reaction Status Date / Time ibuprofen Allergy Nausea Verified 12/27/20 20:22 Home Meds: Home Meds Cyclobenzaprine [Flexeril] 10 mg PO TID PRN #21 tab 12/27/20 [Rx] Omeprazole 20 mg PO DAILY 30 Days #30 tablet. 12/27/20 [Rx] Acetaminophen/oxyCODONE [Percocet 325-10 MG] 1 tab PO Q4H PRN #14 tab 01/26/21 [Rx] Pantoprazole [ProTONIX] 40 mg PO DAILY #90 tab.cr 01/26/21 [Rx] Past Medical History - Past Health History Medical/Surgical History: Denies Medical/Surgical History HEENT History: Reports: None Cardiovascular History: Reports: None Respiratory History: Reports: None Gastrointestinal History: Reports: Other (See Below) Other Gastrointestinal History: "stomach ulcers" Genitourinary History: Reports: None Musculoskeletal History: Reports: None Neurological History: Reports: None Psychiatric History: Reports: None Endocrine/Metabolic History: Reports: None 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 Hematologic History: Reports: None Immunologic History: Reports: None Oncologic (Cancer) History: Reports: None Dermatologic History: Reports: None - Infectious Disease History Infectious Disease History: Reports: None - Past Surgical History Head Surgeries/Procedures: Reports: None Social & Family History - Family History Family Medical History: No Pertinent Family History - Tobacco Use Tobacco Use Status *Q: Never Tobacco User - Caffeine Use Caffeine Use: Reports: None - Recreational Drug Use Recreational Drug Use: No ED ROS GENERAL - Review of Systems Review Of Systems: See Below ED EXAM, GENERAL - Physical Exam Exam: See Below Departure - Departure Disposition: Home, Self-Care 01 Clinical Impression: Atypical chest pain, Back pain, History of peptic ulcer disease, Hypomagnesemia - Discharge Information Prescriptions: Acetaminophen/oxyCODONE [Percocet 325-10 MG] 1 tab PO Q4H PRN #14 tab PRN Reason: Pain (Severe 7-10) Pantoprazole [ProTONIX] 40 mg PO DAILY #90 tab.cr Instructions: Hypomagnesemia, Nonspecific Chest Pain, Adult, [id number], Indigestion, [id number] Referrals: PCP,None [Primary Care Provider] - Forms: ED Department Discharge Additional Instructions: After the addition of magnesium here is to try to manage her magnesium with diet. Follow-up with primary care and have a recheck. Follow-up with general surgery and have them scope you to see if you have an ulcer. Check with the pharmacy for cost of pantoprazole because it is [id number] and this may be less than your co-pay with your insurance. The pharmacy should be able to tell you. [facility] - General [facility] Professional Building [address] [facility], [address] [place] [address] [facility] - Primary [facility] [address] [place] [address] [facility] [address] [place] [id number] The following information is given to patients seen in the emergency department who are being discharged to home. This information is to outline your options for follow-up care. We provide all patients seen in our emergency department with a follow-up referral. The need for follow-up, as well as the timing and circumstances, are variable depending upon the specifics of your emergency department visit. If you don't have a primary care physician on staff, we will provide you with a referral. We always advise you to contact your personal physician following an emergency department visit to inform them of the circumstance of the visit and for follow-up with them and/or the need for any referrals to a consulting specialist. The emergency department will also refer you to a specialist when appropriate. This referral assures that you have the opportunity for follow-up care with a specialist. All of these measure are taken in an effort to provide you with optimal care, which includes your follow-up. Under all circumstances we always encourage you to contact your private physician who remains a resource for coordinating your care. When calling for follow-up care, please make the office aware that this follow-up is from your recent emergency room visit. If for any reason you are refused follow-up, please contact the [facility] Emergency Department at and asked to speak to the emergency department charge nurse. <Carlo Lowe - Last Filed: 01/26/21 20:41> Course - Vital Signs Text/Narrative:: 1941 hrs. accepted this patient from my partner at the end of his shift at 1900 hrs.-the patient has a comfort where the pain is tolerable at a level of [address] is unremarkable. Troponin to be drawn at 1999 hrs. and if that is negative he will go home. 2038 patient has negative troponin again. Impression is that he probably does have peptic ulcer and will treat accordingly. Last Recorded V/S: Last Vital Signs Temp 35.9 C L 01/26/21 16:38 Pulse 74 01/26/21 19:22 Resp 17 01/26/21 19:22 BP 132/84 01/26/21 19:22 Pulse Ox 96 01/26/21 19:22 - Orders/Labs/Meds Orders: Active Orders 24 hr Category Date Time Status Magnesium Sulfate/Water [Magnesium Sulfate in Water 2 Med 01/26/21 17:24 Active GM/50 ML] 2 gm Premix Bag 1 bag IV ONETIME Medication Orders Magnesium Sulfate 2 gm/ Premix 50 mls @ 12.5 mls/hr IV ONETIME ONE Stop: 01/26/21 21:23 Last Admin: 01/26/21 17:59 Dose: Not Given Documented by: [id number] Labs: Laboratory Tests 01/26/21 01/26/21 01/26/21 Range/Units 16:51 16:51 16:51 WBC 8.28 (4.0-11.0) K/uL RBC 5.15 (4.50-5.90) M/uL Hgb 16.1 (13.0-17.0) g/dL Hct 45.3 (38.0-50.0) % MCV 88.0 (80.0-98.0) fL MCH 31.3 (27.0-32.0) pg MCHC 35.5 (31.0-37.0) g/dL RDW Std Deviation 43.0 (28.0-62.0) fl RDW Coeff of Na 13 (11.0-15.0) % Plt Count 194 (150-400) K/uL MPV 10.60 (7.40-12.00) fL Neut % (Auto) 62.5 (48.0-80.0) % Lymph % (Auto) 28.9 (16.0-40.0) % [place] % (Auto) 7.5 (0.0-15.0) % Eos % (Auto) 0.7 (0.0-7.0) % Baso % (Auto) 0.4 (0.0-1.5) % Neut # (Auto) 5.2 (1.4-5.7) K/uL Lymph # (Auto) 2.4 (0.6-2.4) K/uL [place] # (Auto) 0.6 (0.0-0.8) K/uL Eos # (Auto) 0.1 (0.0-0.7) K/uL Baso # (Auto) 0.0 (0.0-0.1) K/uL Nucleated RBC % 0.0 /100WBC Nucleated RBCs # 0 K/uL INR 1.03 Sodium 138 (136-148) mmol/L Potassium 3.8 (3.5-5.1) mmol/L Chloride 103 (98-107) mmol/L Carbon Dioxide 27.4 (21.0-32.0) mmol/L BUN 11 (7.0-18.0) mg/dL Creatinine 1.1 (0.8-1.3) mg/dL Est Cr Clr Drug Dosing 73.44 mL/min Estimated GFR (MDRD) > 60.0 ml/min Glucose 102 (74-106) mg/dL Calcium 8.6 (8.5-10.1) mg/dL Magnesium 1.7 L (1.8-2.4) mg/dL Total Bilirubin 1.0 (0.2-1.0) mg/dL AST 18 (15-37) IU/L ALT 27 (14-63) IU/L Alkaline Phosphatase 110 (46-116) U/L Troponin I < 0.050 (0.000-0.056) ng/mL Total Protein 6.6 (6.4-8.2) g/dL Albumin 3.5 (3.4-5.0) g/dL Globulin 3.1 (2.6-4.0) g/dL Albumin/Globulin Ratio 1.1 (0.9-1.6) 01/26/21 Range/Units 19:56 WBC (4.0-11.0) K/uL RBC (4.50-5.90) M/uL Hgb (13.0-17.0) g/dL Hct (38.0-50.0) % MCV (80.0-98.0) fL MCH (27.0-32.0) pg MCHC (31.0-37.0) g/dL RDW Std Deviation (28.0-62.0) fl RDW Coeff of Na (11.0-15.0) % Plt Count (150-400) K/uL MPV (7.40-12.00) fL Neut % (Auto) (48.0-80.0) % Lymph % (Auto) (16.0-40.0) % [place] % (Auto) (0.0-15.0) % Eos % (Auto) (0.0-7.0) % Baso % (Auto) (0.0-1.5) % Neut # (Auto) (1.4-5.7) K/uL Lymph # (Auto) (0.6-2.4) K/uL [place] # (Auto) (0.0-0.8) K/uL Eos # (Auto) (0.0-0.7) K/uL Baso # (Auto) (0.0-0.1) K/uL Nucleated RBC % /100WBC Nucleated RBCs # K/uL INR Sodium (136-148) mmol/L Potassium (3.5-5.1) mmol/L Chloride (98-107) mmol/L Carbon Dioxide (21.0-32.0) mmol/L BUN (7.0-18.0) mg/dL Creatinine (0.8-1.3) mg/dL Est Cr Clr Drug Dosing mL/min Estimated GFR (MDRD) ml/min Glucose (74-106) mg/dL Calcium (8.5-10.1) mg/dL Magnesium (1.8-2.4) mg/dL Total Bilirubin (0.2-1.0) mg/dL AST (15-37) IU/L ALT (14-63) IU/L Alkaline Phosphatase (46-116) U/L Troponin I < 0.050 (0.000-0.056) ng/mL Total Protein (6.4-8.2) g/dL Albumin (3.4-5.0) g/dL Globulin (2.6-4.0) g/dL Albumin/Globulin Ratio (0.9-1.6) Meds: Medications Generic Name Dose Route Start Last Admin Trade Name Freq PRN Reason Stop Dose Admin Magnesium Sulfate 2 gm/ Premix 50 mls @ 12.5 mls/hr 01/26/21 17:24 01/26/21 17:59 IV 01/26/21 21:23 Not Given ONETIME ONE Discontinued Medications Generic Name Dose Route Start Last Admin Trade Name Freq PRN Reason Stop Dose Admin Aspirin 324 mg 01/26/21 17:44 01/26/21 17:58 Aspirin 81 Mg Tab.Chew PO 01/26/21 17:45 324 mg ONETIME ONE Administration Al Hydroxide/Mg Hydroxide 15 0 ml 01/26/21 17:44 01/26/21 17:58 ml/ Lidocaine HCl 5 ml PO 01/26/21 17:45 20 each ONETIME ONE Administration Iopamidol 100 ml 01/26/21 18:11 01/26/21 18:11 Iopamidol 755 Mg/Ml 500 Ml Multipack Bottle IVPUSH 01/26/21 18:12 100 ml ONETIME STA Administration Magnesium Oxide 800 mg 01/26/21 17:47 01/26/21 17:58 Magnesium Oxide 400 Mg Tab PO 01/26/21 17:48 800 mg ONETIME ONE Administration Morphine Sulfate 4 mg 01/26/21 17:07 01/26/21 17:58 Morphine 4 Mg/Ml Syringe IVPUSH 01/26/21 17:08 4 mg ONETIME ONE Administration Oxycodone/Acetaminophen 1 tab 01/26/21 20:36 Acetaminophen/Oxycodone 325-10 Mg Tab PO 01/26/21 20:37 ONETIME ONE Pantoprazole Sodium 40 mg 01/26/21 20:36 Pantoprazole 40 Mg Tab.Cr PO 01/26/21 20:37 STAT STA Departure - Departure Time of Disposition: 20:39 Condition: Good Sepsis Event Note (ED) - Focused Exam Vital Signs: Vital Signs Temp Pulse Resp BP Pulse Ox 01/26/21 19:22 74 17 132/84 96 01/26/21 18:02 72 18 148/92 H 97 01/26/21 16:38 35.9 C L 75 18 166/101 H 98
[2021-01-26] MEDS ORDERED: Iopamidol 755 MG/ML 500 ML Multipack Bottle IVPUSH STA (18:11)
--- NOTE | 2021-01-26 19:07 | CT ---
INDICATION: Chest pain radiating to the back. TECHNIQUE: CT chest without contrast and CT chest, abdomen and pelvis acquired with 100 cc Isovue 370 IV contrast, dissection protocol. COMPARISON: None. FINDINGS: CHEST: Cardiovascular structures: The unenhanced images demonstrate no evidence of aortic intramural hematoma. The entire aorta is normal in caliber and there is no sign of aortic dissection. Heart size is normal. Mediastinum and tu: No mass or adenopathy. Lungs and pleura: Lungs are clear. No pleural effusions. Chest wall and axilla: No mass or adenopathy. Bones: Unremarkable for age. ABDOMEN AND PELVIS: Liver: Unremarkable. Gallbladder and bile ducts: Unremarkable. Pancreas: Unremarkable. Spleen: Unremarkable. Adrenal glands: Unremarkable. Kidneys: Unremarkable. GI tract: Unremarkable. Vascular structures: Unremarkable. Lymph nodes: Unremarkable. Miscellaneous: Unremarkable. No free air or significant free fluid. Pelvic Organs: Unremarkable. Bones: Unremarkable for age. IMPRESSION: Unremarkable CT of the chest, abdomen and pelvis. No sign of aortic dissection or aneurysm. No changes from the prior exam. Please note that all CT scans at this facility use dose modulation, iterative reconstruction, and/or weight-based dosing when appropriate to reduce radiation dose to as low as reasonably achievable. Dictated by Stephan Koenig MD @ 01/26/2021 7:06:22 PM (Electronically Signed)
[2021-01-26] MEDS ORDERED: Pantoprazole 40 MG Tab.CR PO STA (20:36)
[2021-01-26] MEDS ORDERED: Acetaminophen/oxyCODONE 325-10 MG Tab PO ONE (20:36)
== END 2021-01-26 21:04 | disposition home or self-care (01) ==
LOC: MW.ED 16:29
DX: R07.89 Other chest pain (principal); M54.6 Pain in thoracic spine; E83.42 Hypomagnesemia; Z88.8 Allergy status to other drugs, medicaments and biological substances; Z79.899 Other long term (current) drug therapy; Z87.11 Personal history of peptic ulcer disease
CPT/HCPCS: 36415; 71045; 71275; 74174; 80053; 83735; 84484; 85025; 85610; 93005; 96374; 99285; A9270; J2270; Q9967

== ENCOUNTER 2021-03-03 09:44 | Emergency (ER) | payer MEDICAID ==
[2021-03-03] MEDS ORDERED: Ketorolac 60 MG/2 ML SDV IM ONE (10:40)
--- NOTE | 2021-03-03 10:43 | EDM.PDOC ---
ED HPI GENERAL MEDICAL PROBLEM - General Chief Complaint: Lower Extremity Injury/Pain Stated Complaint: LEFT KNEE PAIN Time Seen by Provider: 03/03/21 10:04 Source of Information: Reports: Patient History Limitations: Reports: No Limitations - History of Present Illness INITIAL COMMENTS - FREE TEXT/NARRATIVE: HISTORY AND PHYSICAL: History of present illness: Patient is a 50-year-old male who presents emergency room today with concern of left knee injury that occurred yesterday. Patient states that he was walking down a flight of steps when he felt a sudden "popping" sensation in his left knee followed by sudden pain. Patient states that he continued to work despite this and states that throughout the day, he began having more swelling. Patient states when he went to bed, he woke up and his knee was more swollen so he came here to the emergency room. Patient denies any fall or head injury. Denies any knee redness. Patient states that he does get nauseous with ibuprofen so has not taken any NSAID medication. Patient denies fever, chills, chest pain, shortness of breath, or cough. Denies headache, neck stiff ness, change in vision, syncope, or near syncope. Denies nausea, vomiting, abdominal pain, diarrhea, constipation, or dysuria. Has not noted any blood in urine or stool. Patient has been eating and drinking appropriately. Review of systems: As per history of present illness and below otherwise all systems reviewed and negative. Past medical history: As per history of present illness and as reviewed below otherwise noncontributory. Surgical history: As per history of present illness and as reviewed below otherwise noncontributory. Social history: See social history for further information Family history: As per history of present illness and as reviewed below otherwise noncontributory. Physical exam: General: Patient is alert, oriented, and in no acute distress. Patient sitting comfortably on exam table. Vitals stable and reviewed by me. HEENT: Atraumatic, normocephalic, pupils equal and reactive bilaterally, negative for conjunctival pallor or scleral icterus, neck supple, nontender, trachea midline. No drooling or trismus noted. No meningeal signs. No hot potato voice noted. Lungs: Clear to auscultation, breath sounds equal bilaterally, chest nontender. Heart: S1S2, regular rate and rhythm without overt murmur Abdomen: Soft, nondistended, nontender. Negative for masses or hepatosplenomegaly. Negative for costovertebral tenderness. Pelvis: Stable nontender. Genitourinary: Deferred. Rectal: Deferred. Skin: Intact, warm, dry. No lesions or rashes noted. Extremities: Left knee is moderately edematous without erythema/increased warmth. Patient does have full range of motion of the left knee but does have pain with complete flexion and extension. Intact sensation to light and deep touch of the complete left lower extremity. All compartments are soft of the left lower extremity. Patient does have full range of motion of the remainder left lower extremity. Dorsalis pedis and posterior tibial pulses are grossly intact with capillary refill less than 2 seconds. Otherwise, atraumatic, negative for cords or calf pain. Neurovascular unremarkable. Neuro: Awake, alert, oriented. Cranial nerves II through XII unremarkable. Cerebellum unremarkable. Motor and sensory unremarkable throughout. Exam nonfocal. Notes: Signs and symptoms that were prompt return to the ED thoroughly discussed with patient. Discussed importance for follow-up with an orthopedic provider. Voices understanding and is agreeable to plan of care. Denies any further questions or concerns at this time. Diagnostics: Knee XR, LT Therapeutics: Toradol, Knee immobilizer, Crutches Prescription: Diclofenac Impression: Left knee injury, r/o meniscus/ligamentous injury Plan: 1. Rest, ice, elevate the affected extremity. You can apply ice 15 minutes on, 15 minutes off. 2. Tylenol and/or Diclofenac as directed for pain management or discomfort. 3. Follow up with the Orthopedic provider as discussed. Return to the ED as needed and as discussed. Definitive disposition and diagnosis as appropriate pending reevaluation and review of above. left knee Pain Score (Numeric/FACES): 7 - Related Data Allergies Allergy/AdvReac Type Severity Reaction Status Date / Time ibuprofen Allergy Nausea Verified 03/03/21 10:38 Home Meds: Home Meds Cyclobenzaprine [Flexeril] 10 mg PO TID PRN #21 tab 12/27/20 [Rx] Acetaminophen/oxyCODONE [Percocet 325-10 MG] 1 tab PO Q4H PRN #14 tab 01/26/21 [Rx] Pantoprazole [ProTONIX] 40 mg PO DAILY #90 tab.cr 01/26/21 [Rx] Diclofenac Sodium [Voltaren] 75 mg PO BIDMEALS PRN #15 tab.cr 03/03/21 [Rx] Past Medical History - Past Health History Medical/Surgical History: Denies Medical/Surgical History HEENT History: Reports: None Cardiovascular History: Reports: None Respiratory History: Reports: None Gastrointestinal History: Reports: Other (See Below) Other Gastrointestinal History: "stomach ulcers" Genitourinary History: Reports: None Musculoskeletal History: Reports: None Neurological History: Reports: None Psychiatric History: Reports: None Endocrine/Metabolic History: Reports: None Insulin Pump Model and Farm Operations Manager: None Hematologic History: Reports: None Immunologic History: Reports: None Oncologic (Cancer) History: Reports: None Dermatologic History: Reports: None - Infectious Disease History Infectious Disease History: Reports: None - Past Surgical History Head Surgeries/Procedures: Reports: None Social & Family History - Family History Family Medical History: No Pertinent Family History - Caffeine Use Caffeine Use: Reports: None Review of Systems - Review of Systems Review Of Systems: Comprehensive ROS is negative, except as noted in HPI. ED EXAM, GENERAL - Physical Exam Exam: See Below (see dictation) Course - Vital Signs Last Recorded V/S: Last Vital Signs Temp 96.4 F L 03/03/21 10:35 Pulse 62 03/03/21 11:15 Resp 17 03/03/21 11:15 BP 139/91 H 03/03/21 11:15 Pulse Ox 98 03/03/21 11:15 - Orders/Labs/Meds Orders: Active Orders 24 hr Category Date Time Status DME for Discharge [COMM] Stat Oth 03/03/21 10:39 Ordered Meds: Medications Discontinued Medications Generic Name Dose Route Start Last Admin Trade Name Shaneq PRN Reason Stop Dose Admin Ketorolac Tromethamine 60 mg 03/03/21 10:40 03/03/21 10:49 Ketorolac 60 Mg/2 Ml Sdv IM 03/03/21 10:41 60 mg ONETIME ONE Administration Departure - Departure Time of Disposition: 10:41 Disposition: Home, Self-Care 01 Clinical Impression: Left knee injury - Discharge Information Prescriptions: Diclofenac Sodium [Voltaren] 75 mg PO BIDMEALS PRN #15 tab.cr PRN Reason: Pain Instructions: Acute Knee Pain, Adult Referrals: PCP,None [Primary Care Provider] - Forms: ED Department Discharge Additional Instructions: The following information is given to patients seen in the emergency department who are being discharged to home. This information is to outline your options for follow-up care. We provide all patients seen in our emergency department with a follow-up referral. The need for follow-up, as well as the timing and circumstances, are variable depending upon the specifics of your emergency department visit. If you don't have a primary care physician on staff, we will provide you with a referral. We always advise you to contact your personal physician following an emergency department visit to inform them of the circumstance of the visit and for follow-up with them and/or the need for any referrals to a consulting specialist. The emergency department will also refer you to a specialist when appropriate. This referral assures that you have the opportunity for follow-up care with a specialist. All of these measure are taken in an effort to provide you with optimal care, which includes your follow-up. Under all circumstances we always encourage you to contact your private physician who remains a resource for coordinating your care. When calling for follow-up care, please make the office aware that this follow-up is from your recent emergency room visit. If for any reason you are refused follow-up, please contact the [facility] Emergency Department at and asked to speak to the emergency department charge nurse. [facility] - [facility] [address], [address] [place] [address] Dr De La Garza, Orthopedist [address] [address] 1. Rest, ice, elevate the affected extremity. You can apply ice 15 minutes on, 15 minutes off. Use splint and crutches until follow up with an orthopedic provider. 2. Tylenol and/or Diclofenac as directed for pain management or discomfort. 3. Follow up with the Orthopedic provider as discussed. Return to the ED as needed and as discussed. Sepsis Event Note (ED) - Evaluation Sepsis Screening Result: No Definite Risk - Focused Exam Vital Signs: Vital Signs Temp Pulse Resp BP Pulse Ox 03/03/21 11:15 62 17 139/91 H 98 03/03/21 10:35 96.4 F L 59 L 16 134/96 H 98 - My Orders Last 24 Hours: My Active Orders 03/03/21 10:39 DME for Discharge [COMM] Stat - Assessment/Plan Last 24 Hours: My Active Orders 03/03/21 10:39 DME for Discharge [COMM] Stat
--- NOTE | 2021-03-03 11:34 | CR ---
INDICATION: Knee popped 2 days ago. Now swollen. TECHNIQUE: Weightbearing AP and lateral views of the left knee as well as a sunrise view. COMPARISON: None. FINDINGS: Suspected joint effusion. No fracture or subluxation. Mild medial compartment osteoarthritis. Lateral compartment and patellofemoral joint negative. No chondrocalcinosis. IMPRESSION: 1. Possible joint effusion. No acute bony abnormality. 2. Mild medial compartment osteoarthritis. Dictated by Zhou Willard MD @ 03/03/2021 11:32:18 AM (Electronically Signed)
== END 2021-03-03 11:16 | disposition home or self-care (01) ==
LOC: MW.ED 09:44
DX: S89.92XA Unspecified injury of left lower leg, initial encounter (principal); Z88.8 Allergy status to other drugs, medicaments and biological substances; Z79.899 Other long term (current) drug therapy; X58.XXXA Exposure to other specified factors, initial encounter
CPT/HCPCS: 73562; 96372; 99283; J1885

== ENCOUNTER 2021-04-12 16:07 | Emergency (ER) | payer MEDICAID ==
--- NOTE | 2021-04-12 17:39 | EDM.PDOC ---
ED HPI GENERAL MEDICAL PROBLEM - General Chief Complaint: General Stated Complaint: NUMBING AND TINGLING IN ARMS/ PT IS DIZZY Time Seen by Provider: 04/12/21 17:38 Source of Information: Reports: Patient History Limitations: Reports: No Limitations - History of Present Illness INITIAL COMMENTS - FREE TEXT/NARRATIVE: 50-year-old male presents for near syncopal episode. Patient was in the shower when he states that he felt lightheaded, dizzy, numbness and tingling sensation to mouth and arms and felt like he was about to pass out. He did feel mildly nauseated. Symptoms lasted for several minutes then went away completely. Denies any chest pain or difficulty breathing. Denies any symptoms now. Denies any one-sided body weakness. Denies any confusion or slurred speech. - Related Data Allergies Allergy/AdvReac Type Severity Reaction Status Date / Time ibuprofen Allergy Nausea Verified 04/12/21 16:40 Home Meds: Home Meds Cyclobenzaprine [Flexeril] 10 mg PO TID PRN #21 tab 12/27/20 [Rx] Acetaminophen/oxyCODONE [Percocet 325-10 MG] 1 tab PO Q4H PRN #14 tab 01/26/21 [Rx] Pantoprazole [ProTONIX] 40 mg PO DAILY #90 tab.cr 01/26/21 [Rx] Diclofenac Sodium [Voltaren] 75 mg PO BIDMEALS PRN #15 tab.cr 03/03/21 [Rx] Past Medical History - Past Health History Medical/Surgical History: Denies Medical/Surgical History HEENT History: Reports: None Cardiovascular History: Reports: None Respiratory History: Reports: None Gastrointestinal History: Reports: Other (See Below) Other Gastrointestinal History: "stomach ulcers" Genitourinary History: Reports: None Musculoskeletal History: Reports: None Neurological History: Reports: None Psychiatric History: Reports: None Endocrine/Metabolic History: Reports: None Insulin Pump Model and Paper Roller: None Hematologic History: Reports: None Immunologic History: Reports: None Oncologic (Cancer) History: Reports: None Dermatologic History: Reports: None - Infectious Disease History Infectious Disease History: Reports: None - Past Surgical History Head Surgeries/Procedures: Reports: None Social & Family History - Family History Family Medical History: No Pertinent Family History - Tobacco Use Tobacco Use Status *Q: Current Every Day Tobacco User Years of Tobacco use: 37 Packs/Tins Daily: 1 - Caffeine Use Caffeine Use: Reports: Coffee, Soda - Recreational Drug Use Recreational Drug Use: No ED ROS GENERAL - Review of Systems Review Of Systems: Comprehensive ROS is negative, except as noted in HPI. ED EXAM, GENERAL - Physical Exam Exam: See Below General Appearance: Alert, WD/WN, No Apparent Distress Eye Exam: Bilateral Eye: EOMI, PERRL Ears: Hearing Grossly Normal Throat/Mouth: Normal Voice, No Airway Compromise Head: Atraumatic, Normocephalic Respiratory/Chest: No Respiratory Distress, Lungs Clear, Normal Breath Sounds, No Accessory Muscle Use Cardiovascular: Normal Peripheral Pulses, Regular Rate, Rhythm GI/Abdominal: Soft, Non-Tender Extremities: Normal Inspection Neurological: Alert, CN II-XII Intact, Normal Cognition, Normal Gait, No Motor/Sensory Deficits Psychiatric: Normal Affect, Normal Mood Skin Exam: Warm, Dry, Intact, Normal Color #1 Interpretation EKG Date: 04/12/21 Time: 18:02 Rhythm: NSR Rate (Beats/Min): 65 [place]: Normal P-Wave: Present QRS: Normal ST-T: Normal QT: Normal MO/PQ Interval: 184 Comparison: NA - No Prior EKG EKG Interpretation Comments: unremarkable EKG Course - Vital Signs Last Recorded V/S: Last Vital Signs Temp 97.8 F 04/12/21 16:41 Pulse 75 04/12/21 16:41 Resp 18 04/12/21 16:41 BP 123/83 04/12/21 16:41 Pulse Ox 100 04/12/21 16:41 - Orders/Labs/Meds Orders: Active Orders 24 hr Category Date Time Status Accu Check [Blood Glucose Check, Bedside] [RC] ONETIME Care 04/12/21 17:57 Active EKG Documentation Completion [RC] STAT Care 04/12/21 17:57 Active - Re-Assessments/Exams Free Text/Narrative Re-Assessment/Exam: 04/12/21 18:00 Patient symptoms sound consistent with vasovagal syncope. I have a very low suspicion of ACS or intracranial pathology. Will get an EKG and a blood glucose to ensure no abnormalities. If normal anticipate discharge with follow-up PMD for further work-up and assessment. Patient is agreeable with plan. 04/12/21 18:10 Blood glucose normal. EKG unremarkable. Will discharge with PMD follow-up. Departure - Departure Time of Disposition: 18:10 Disposition: Home, Self-Care 01 Condition: Good Clinical Impression: Vasovagal episode - Discharge Information Instructions: Near-Syncope, [id number] Referrals: Luba Long DO [Primary Care Provider] - Forms: ED Department Discharge Additional Instructions: The following information is given to patients seen in the emergency department who are being discharged to home. This information is to outline your options for follow-up care. We provide all patients seen in our emergency department with a follow-up referral. The need for follow-up, as well as the timing and circumstances, are variable depending upon the specifics of your emergency department visit. If you don't have a primary care physician on staff, we will provide you with a referral. We always advise you to contact your personal physician following an emergency department visit to inform them of the circumstance of the visit and for follow-up with them and/or the need for any referrals to a consulting specialist. The emergency department will also refer you to a specialist when appropriate. This referral assures that you have the opportunity for follow-up care with a specialist. All of these measure are taken in an effort to provide you with optimal care, which includes your follow-up. Under all circumstances we always encourage you to contact your private physician who remains a resource for coordinating your care. When calling for follow-up care, please make the office aware that this follow-up is from your recent emergency room visit. If for any reason you are refused follow-up, please contact the [facility] Emergency Department at and asked to speak to the emergency department charge nurse. Please follow up with your primary care physician. If you do not have a primary care physician, see below: [facility] [address] [place] [id number] [facility] [address] [place] [id number] [facility] [address] [place] [id number] Sepsis Event Note (ED) - Evaluation Sepsis Screening Result: No Definite Risk - Focused Exam Vital Signs: Vital Signs Temp Pulse Resp BP Pulse Ox 04/12/21 16:41 97.8 F 75 18 123/83 100 - My Orders Last 24 Hours: My Active Orders 04/12/21 17:57 Accu Check [Blood Glucose Check, Bedside] [RC] ONETIME EKG Documentation Completion [RC] STAT - Assessment/Plan Last 24 Hours: My Active Orders 04/12/21 17:57 Accu Check [Blood Glucose Check, Bedside] [RC] ONETIME EKG Documentation Completion [RC] STAT
== END 2021-04-12 18:19 | disposition home or self-care (01) ==
LOC: MW.ED 16:07
DX: R55 Syncope and collapse (principal); Z88.8 Allergy status to other drugs, medicaments and biological substances; Z79.899 Other long term (current) drug therapy; Z72.0 Tobacco use
CPT/HCPCS: 82947; 93005; 99284-25

== ENCOUNTER 2021-07-21 04:28 | Emergency (ER) | payer MEDICAID ==
[2021-07-21] MEDS ORDERED: Morphine 4 MG/ML VIAL IVPUSH ONE (04:34)
[2021-07-21] MEDS ORDERED: Pantoprazole 80 MG in Sodium Chloride 0.9% 10 ML IVPUSH ONE (04:51)
[2021-07-21] MEDS ORDERED: Alum Hydro/Mag Hydro/Simeth XS 15 ML, Lidocaine 2% 5 ML PO ONE ×2 (04:51)
[2021-07-21 05:12] LABS: BLOOD UREA NITROGEN,BUN 10 mg/dL (7.0-18.0); CARBON DIOXIDE,CO2 29.4 mmol/L (21.0-32.0); CHLORIDE,CL 101 mmol/L (98-107); GLUCOSE RANDOM 128 mg/dL (74-106); POTASSIUM,K 4.6 mmol/L (3.5-5.1); SODIUM,NA 139 mmol/L (136-148)
== END 2021-07-21 08:15 | disposition home or self-care (01) ==
LOC: MW.ED 04:28
DX: R07.9 Chest pain, unspecified (principal); I25.10 Atherosclerotic heart disease of native coronary artery without angina pectoris; K29.70 Gastritis, unspecified, without bleeding; M54.9 Dorsalgia, unspecified; I10 Essential (primary) hypertension; Z88.8 Allergy status to other drugs, medicaments and biological substances; Z79.899 Other long term (current) drug therapy; Z20.822 Contact with and (suspected) exposure to COVID-19
CPT/HCPCS: 36415; 71045; 80053; 83735; 84484; 85025; 85379; 87635; 93005; 96374; 96375; 99285; A9270; C9113; J2270; 93010; 99284; U0002

== ENCOUNTER 2021-12-20 10:03 | Emergency (ER) | payer MEDICAID | END 2021-12-20 11:48 | disposition home or self-care (01) | LOC: MW.ED 10:03 | DX: Z20.822 Contact with and (suspected) exposure to COVID-19 (principal); Z79.899 Other long term (current) drug therapy; Z88.6 Allergy status to analgesic agent | CPT/HCPCS: 99281; 99283; U0002 ==

== ENCOUNTER 2022-03-19 14:04 | Emergency (ER) | payer MEDICAID, OTHER ==
[2022-03-19] MEDS ORDERED: Ondansetron 4 MG Tab.DIS PO ONE (16:24)
[2022-03-19] MEDS ORDERED: Alum Hydro/Mag Hydro/Simeth XS 15 ML, Lidocaine 2% 5 ML PO ONE ×2 (16:25)
[2022-03-19 18:10] LABS: CARBON DIOXIDE,CO2 28.2 mmol/L (21.0-32.0)
[2022-03-19] MEDS ORDERED: Famotidine 20 MG Tab PO ONE (18:42)
== END 2022-03-19 19:18 | disposition home or self-care (01) ==
LOC: MW.ED 14:04
DX: K29.70 Gastritis, unspecified, without bleeding (principal); K21.9 Gastro-esophageal reflux disease without esophagitis; Z72.0 Tobacco use; Z88.6 Allergy status to analgesic agent; Z79.899 Other long term (current) drug therapy
CPT/HCPCS: 36415; 80053; 83690; 85025; 93005; 99284; A9270

== ENCOUNTER 2022-05-04 19:46 | Emergency (ER) | payer MEDICAID, OTHER ==
[2022-05-04] MEDS ORDERED: Cyclobenzaprine 10 MG Tab PO ONE (22:29)
[2022-05-04] MEDS ORDERED: Acetaminophen 500 MG Tab PO ONE (22:29)
== END 2022-05-05 00:45 | disposition home or self-care (01) ==
LOC: MW.ED 19:46
DX: M54.6 Pain in thoracic spine (principal); F17.210 Nicotine dependence, cigarettes, uncomplicated; Z88.6 Allergy status to analgesic agent; Z79.899 Other long term (current) drug therapy; W18.40XA Slipping, tripping and stumbling without falling, unspecified, initial encounter
CPT/HCPCS: 72072; 72100; 99283; A9270

== ENCOUNTER 2022-05-19 00:55 | Emergency (ER) | payer MEDICAID ==
[2022-05-19] MEDS ORDERED: Sodium Chloride 0.9% 2.5 ML Syringe FLUSH PRN (01:12)
[2022-05-19] MEDS ORDERED: Sodium Chloride 0.9% 10 ML Syringe FLUSH PRN (01:12)
[2022-05-19 02:21] LABS: CARBON DIOXIDE,CO2 34.4 mmol/L (21.0-32.0); POTASSIUM,K 4.7 mmol/L (3.5-5.1)
[2022-05-19] MEDS ORDERED: Iopamidol 755 MG/ML 500 ML Multipack Bottle IVPUSH STA (03:01)
[2022-05-19] MEDS ORDERED: Ondansetron 4 MG/2 ML SDV IVPUSH ONE (03:07)
[2022-05-19] MEDS ORDERED: fentaNYL 50 MCG/ML SDV IVPUSH ONE (03:07)
[2022-05-19] MEDS ORDERED: Sodium Chloride 0.9% 1,000 ML IV ONE (03:14)
== END 2022-05-19 04:49 | disposition home or self-care (01) ==
LOC: MW.ED 00:55
DX: R10.9 Unspecified abdominal pain (principal); M54.9 Dorsalgia, unspecified; Z88.8 Allergy status to other drugs, medicaments and biological substances; W00.0XXA Fall on same level due to ice and snow, initial encounter
CPT/HCPCS: 36415; 74177; 80053; 83690; 85025; 96361; 96374; 96375; 99284; J2405; J3010; J3490; J7030; Q9967; 99283

== ENCOUNTER 2022-05-27 18:26 | Emergency (ER) | payer MEDICAID ==
[2022-05-27] MEDS ORDERED: Sodium Chloride 0.9% 1,000 ML IV ONE (20:30)
[2022-05-27] MEDS ORDERED: Alum Hydro/Mag Hydro/Simeth XS 15 ML, Metoclopramide 5 MG, Lidocaine 2% 5 ML PO ONE ×3 (20:40)
[2022-05-27 21:23] LABS: CARBON DIOXIDE,CO2 29.6 mmol/L (21.0-32.0); POTASSIUM,K 4.5 mmol/L (3.5-5.1)
== END 2022-05-27 22:13 | disposition home or self-care (01) ==
LOC: MW.ED 18:26
DX: R10.13 Epigastric pain (principal); K21.9 Gastro-esophageal reflux disease without esophagitis; Z88.6 Allergy status to analgesic agent; Z79.899 Other long term (current) drug therapy; Z72.0 Tobacco use
CPT/HCPCS: 36415; 80053; 81001; 83690; 85025; 96360; 99284; A9270; J7030; 99283

== ENCOUNTER 2022-06-19 09:35 | Day surgery (SDC) | payer MEDICAID ==
[~2022-06-19 09:35] MED LIST: Lactated Ringers 1,000 ML IV SCH
[2022-06-19] MEDS ORDERED: Lidocaine 2% 5 ML SDV ONE (11:43)
[2022-06-19] MEDS ORDERED: Propofol 200 MG/20 ML SDV ONE ×3 (11:43→12:32)
[2022-06-19] MEDS ORDERED: fentaNYL 100 MCG/2 ML SDV ONE (11:44)
[2022-06-19] MEDS ORDERED: Lactated Ringers 1,000 ML IV SCH (13:00)
== END 2022-06-19 13:28 | disposition home or self-care (01) ==
LOC: MW.SDS 09:35
PROVIDERS: ATTEND Surgery
DX: Z12.11 Encounter for screening for malignant neoplasm of colon (principal); K21.00 Gastro-esophageal reflux disease with esophagitis, without bleeding; K29.00 Acute gastritis without bleeding; K29.50 Unspecified chronic gastritis without bleeding; K31.A0 Gastric intestinal metaplasia, unspecified; B96.81 Helicobacter pylori [H. pylori] as the cause of diseases classified elsewhere; K44.9 Diaphragmatic hernia without obstruction or gangrene; E78.5 Hyperlipidemia, unspecified; K21.9 Gastro-esophageal reflux disease without esophagitis; F17.210 Nicotine dependence, cigarettes, uncomplicated; Z79.899 Other long term (current) drug therapy; Z98.890 Other specified postprocedural states; Z88.6 Allergy status to analgesic agent
CPT/HCPCS: 43239; 45378; J2704; J3010; J7120; 00813; J3490

== ENCOUNTER 2023-01-10 00:53 | Emergency (ER) | payer MEDICAID ==
[2023-01-10] MEDS ORDERED: Sodium Chloride 0.9% 10 ML Syringe FLUSH PRN (01:23)
[2023-01-10] MEDS ORDERED: Sodium Chloride 0.9% 2.5 ML Syringe FLUSH PRN (01:23)
[2023-01-10] MEDS ORDERED: Sodium Chloride 0.9% 1,000 ML IV ONE (01:23)
[2023-01-10] MEDS ORDERED: Ondansetron 4 MG/2 ML SDV IVPUSH ONE (01:23)
[2023-01-10] MEDS ORDERED: Dicyclomine 10 MG Cap PO ONE (01:23)
[2023-01-10 01:44] LABS: BASOPHILS ABSOLUTE AUTO 0.1 K/uL (0.0-0.1); BASOPHILS PERCENT AUTO 0.6 % (0.0-1.5); EOSINOPHILS ABSOLUTE AUTO 0.1 K/uL (0.0-0.7); EOSINOPHILS PERCENT AUTO 0.6 % (0.0-7.0); HEMATOCRIT 43.7 % (38.0-50.0); HEMOGLOBIN 14.9 g/dL (13.0-17.0); LYMPHOCYTES ABSOLUTE AUTO 2.1 K/uL (0.6-2.4); LYMPHOCYTES PERCENT AUTO 27.4 % (16.0-40.0); MEAN CORPUSCULAR HEMOGLOBIN 30.8 pg (27.0-32.0); MEAN CORPUSCULAR HGB CONC 34.1 g/dL (31.0-37.0); MEAN CORPUSCULAR VOLUME 90.5 fL (80.0-98.0); MONOCYTES ABSOLUTE AUTO 0.6 K/uL (0.0-0.8); MONOCYTES PERCENT AUTO 7.9 % (0.0-15.0); NEUTROPHILS PERCENT AUTO 63.5 % (48.0-80.0); NRBC ABSOLUTE 0 K/uL; PLATELET COUNT,PLT 200 K/uL (150-400); RED BLOOD CELL COUNT 4.83 M/uL (4.50-5.90); WHITE BLOOD CELL COUNT,WBC 7.82 K/uL (4.0-11.0)
[2023-01-10 02:11] LABS: A/G RATIO 1.3 (0.9-1.6); ALBUMIN 3.8 g/dL (3.4-5.0); BILIRUBIN TOTAL 0.8 mg/dL (0.2-1.0); CALCIUM 8.8 mg/dL (8.5-10.1); CARBON DIOXIDE,CO2 27.7 mmol/L (21.0-32.0); CREATININE 1.1 mg/dL (0.8-1.3); EST CRCL DRUG DOSING (CG) 71.78 mL/min; POTASSIUM,K 4.3 mmol/L (3.5-5.1); PROTEIN TOTAL,TP 6.8 g/dL (6.4-8.2)
[2023-01-10] MEDS ORDERED: Famotidine 20 MG/2 ML SDV IVPUSH ONE (02:58)
[2023-01-10] MEDS ORDERED: Sucralfate 1 GM Tab PO ONE (02:58)
== END 2023-01-10 04:32 | disposition home or self-care (01) ==
LOC: MW.ED 00:53
DX: K52.9 Noninfective gastroenteritis and colitis, unspecified (principal); R11.2 Nausea with vomiting, unspecified; E78.00 Pure hypercholesterolemia, unspecified; E66.9 Obesity, unspecified; Z88.8 Allergy status to other drugs, medicaments and biological substances; Z79.899 Other long term (current) drug therapy; Z20.822 Contact with and (suspected) exposure to COVID-19; Z87.11 Personal history of peptic ulcer disease; Z68.33 Body mass index [BMI] 33.0-33.9, adult
CPT/HCPCS: 36415; 80053; 83690; 84484; 85025; 87635; 93005; 96361; 96374; 96375; 99284; A9270; J2405; J3490; J7030; 93010; U0002

== ENCOUNTER 2023-01-11 00:45 | Emergency (ER) | payer MEDICAID ==
[2023-01-11] MEDS ORDERED: Orphenadrine 60 MG/2 ML Inj IM ONE (01:12)
[2023-01-11] MEDS ORDERED: Ketorolac 30 MG/ML SDV IM ONE (01:12)
== END 2023-01-11 03:15 | disposition home or self-care (01) ==
LOC: MW.ED 00:45
DX: R10.9 Unspecified abdominal pain (principal); E66.9 Obesity, unspecified; E78.00 Pure hypercholesterolemia, unspecified; K21.9 Gastro-esophageal reflux disease without esophagitis; Z87.891 Personal history of nicotine dependence; Z79.899 Other long term (current) drug therapy; Z88.8 Allergy status to other drugs, medicaments and biological substances; Z68.34 Body mass index [BMI] 34.0-34.9, adult
CPT/HCPCS: 74176; 96372; 99283; J1885; J2360

== ENCOUNTER 2023-01-12 16:52 | Emergency (ER) | payer MEDICAID ==
[2023-01-12] MEDS ORDERED: Ondansetron 4 MG/2 ML SDV IVPUSH ONE (19:14)
[2023-01-12] MEDS ORDERED: fentaNYL 50 MCG/ML SDV IVPUSH ONE (19:14)
[2023-01-12] MEDS ORDERED: Sodium Chloride 0.9% 1,000 ML IV ONE (19:14)
[2023-01-12 19:16] LABS: BASOPHILS PERCENT AUTO 0.4 % (0.0-1.5); EOSINOPHILS PERCENT AUTO 0.1 % (0.0-7.0); HEMATOCRIT 47.1 % (38.0-50.0); HEMOGLOBIN 16.2 g/dL (13.0-17.0); LYMPHOCYTES ABSOLUTE AUTO 1.1 K/uL (0.6-2.4); LYMPHOCYTES PERCENT AUTO 15.7 % (16.0-40.0); MEAN CORPUSCULAR HEMOGLOBIN 30.5 pg (27.0-32.0); MEAN CORPUSCULAR HGB CONC 34.4 g/dL (31.0-37.0); MEAN CORPUSCULAR VOLUME 88.5 fL (80.0-98.0); MONOCYTES ABSOLUTE AUTO 0.6 K/uL (0.0-0.8); MONOCYTES PERCENT AUTO 8.3 % (0.0-15.0); NEUTROPHILS ABSOLUTE AUTO 5.5 K/uL (1.4-5.7); NEUTROPHILS PERCENT AUTO 75.5 % (48.0-80.0); NRBC ABSOLUTE 0 K/uL; PLATELET COUNT,PLT 216 K/uL (150-400); RED BLOOD CELL COUNT 5.32 M/uL (4.50-5.90); WHITE BLOOD CELL COUNT,WBC 7.26 K/uL (4.0-11.0)
[2023-01-12] MEDS ORDERED: Iopamidol 755 MG/ML 500 ML Multipack Bottle IVPUSH ONE (19:35)
[2023-01-12 19:49] LABS: A/G RATIO 1.1 (0.9-1.6); ALBUMIN 4.1 g/dL (3.4-5.0); BILIRUBIN TOTAL 1.4 mg/dL (0.2-1.0); CALCIUM 9.8 mg/dL (8.5-10.1); CARBON DIOXIDE,CO2 25.5 mmol/L (21.0-32.0); EST CRCL DRUG DOSING (CG) 78.95 mL/min; PROTEIN TOTAL,TP 7.7 g/dL (6.4-8.2)
== END 2023-01-12 21:43 | disposition home or self-care (01) ==
LOC: MW.ED 16:52
DX: M54.6 Pain in thoracic spine (principal); E78.00 Pure hypercholesterolemia, unspecified; K21.9 Gastro-esophageal reflux disease without esophagitis; E66.9 Obesity, unspecified; Z68.33 Body mass index [BMI] 33.0-33.9, adult; Z88.8 Allergy status to other drugs, medicaments and biological substances; Z79.899 Other long term (current) drug therapy; Z72.0 Tobacco use
CPT/HCPCS: 36415; 71275; 74176; 80053; 82150; 83690; 84484; 85025; 93005; 96361; 96374; 96375; 99284; J2405; J3010; J7030; Q9967; 93010

== ENCOUNTER 2023-01-14 04:23 | Emergency (ER) | payer MEDICAID ==
[2023-01-14] MEDS ORDERED: Ondansetron 4 MG/2 ML SDV IVPUSH ONE (04:48)
[2023-01-14] MEDS ORDERED: Sodium Chloride 0.9% 2.5 ML Syringe FLUSH PRN (04:48)
[2023-01-14] MEDS ORDERED: fentaNYL 50 MCG/ML SDV IVPUSH ONE (04:48)
[2023-01-14] MEDS ORDERED: Sodium Chloride 0.9% 10 ML Syringe FLUSH PRN (04:48)
[2023-01-14] MEDS ORDERED: Sodium Chloride 0.9% 1,000 ML IV ONE (04:48)
[2023-01-14 05:19] LABS: BASOPHILS PERCENT AUTO 0.3 % (0.0-1.5); EOSINOPHILS PERCENT AUTO 0.1 % (0.0-7.0); HEMATOCRIT 42.3 % (38.0-50.0); HEMOGLOBIN 14.8 g/dL (13.0-17.0); LYMPHOCYTES ABSOLUTE AUTO 1.5 K/uL (0.6-2.4); LYMPHOCYTES PERCENT AUTO 18.7 % (16.0-40.0); MEAN CORPUSCULAR HEMOGLOBIN 30.8 pg (27.0-32.0); MEAN CORPUSCULAR VOLUME 88.1 fL (80.0-98.0); MONOCYTES ABSOLUTE AUTO 0.7 K/uL (0.0-0.8); MONOCYTES PERCENT AUTO 9.3 % (0.0-15.0); NEUTROPHILS ABSOLUTE AUTO 5.6 K/uL (1.4-5.7); NEUTROPHILS PERCENT AUTO 71.6 % (48.0-80.0); NRBC ABSOLUTE 0 K/uL; PLATELET COUNT,PLT 196 K/uL (150-400); WHITE BLOOD CELL COUNT,WBC 7.76 K/uL (4.0-11.0)
[2023-01-14] MEDS ORDERED: Pantoprazole 40 MG in Sodium Chloride 0.9% 10 ML IVPUSH ONE (05:44)
[2023-01-14] MEDS ORDERED: Aluminum Hydroxide/Magnesium Hydroxide/Simethicone XS Susp 30 ML Cup PO ONE (05:44)
[2023-01-14 05:46] LABS: A/G RATIO 1.1 (0.9-1.6); ALBUMIN 3.3 g/dL (3.4-5.0); BILIRUBIN TOTAL 0.8 mg/dL (0.2-1.0); CALCIUM 8.5 mg/dL (8.5-10.1); CARBON DIOXIDE,CO2 26.6 mmol/L (21.0-32.0); EST CRCL DRUG DOSING (CG) 76.21 mL/min; PROTEIN TOTAL,TP 6.2 g/dL (6.4-8.2)
[2023-01-14] MEDS ORDERED: Iopamidol 755 MG/ML 500 ML Multipack Bottle IVPUSH ONE (06:09)
[2023-01-14] MEDS ORDERED: Potassium Chloride 20 MEQ Tab.ER PO ONE (06:31)
== END 2023-01-14 08:20 | disposition home or self-care (01) ==
LOC: MW.ED 04:23
DX: K29.70 Gastritis, unspecified, without bleeding (principal); E87.6 Hypokalemia; E78.00 Pure hypercholesterolemia, unspecified; K21.9 Gastro-esophageal reflux disease without esophagitis; E66.9 Obesity, unspecified; Z68.41 Body mass index [BMI] 40.0-44.9, adult; Z79.899 Other long term (current) drug therapy; Z88.6 Allergy status to analgesic agent
CPT/HCPCS: 36415; 74177; 76705; 80053; 83690; 84484; 85025; 93005; 96361; 96374; 96375; 99284; A9270; C9113; J2405; J3010; J3490; J7030; Q9967; 93010

== ENCOUNTER 2023-01-30 02:43 | Emergency (ER) | payer MEDICAID ==
[2023-01-30] MEDS ORDERED: Sodium Chloride 0.9% 2.5 ML Syringe FLUSH PRN (03:21)
[2023-01-30] MEDS ORDERED: Sodium Chloride 0.9% 1,000 ML IV ONE (03:21)
[2023-01-30] MEDS ORDERED: Morphine 4 MG/ML Syringe IVPUSH ONE (03:21)
[2023-01-30] MEDS ORDERED: Sodium Chloride 0.9% 10 ML Syringe FLUSH PRN (03:21)
[2023-01-30] MEDS ORDERED: Aluminum Hydroxide/Magnesium Hydroxide/Simethicone XS Susp 30 ML Cup PO ONE (03:22)
[2023-01-30] MEDS ORDERED: Famotidine 20 MG/2 ML SDV IVPUSH ONE (03:24)
[2023-01-30 03:47] LABS: BASOPHILS PERCENT AUTO 0.6 % (0.0-1.5); EOSINOPHILS ABSOLUTE AUTO 0.1 K/uL (0.0-0.7); EOSINOPHILS PERCENT AUTO 1.5 % (0.0-7.0); HEMATOCRIT 45.1 % (38.0-50.0); HEMOGLOBIN 15.5 g/dL (13.0-17.0); LYMPHOCYTES ABSOLUTE AUTO 2.1 K/uL (0.6-2.4); LYMPHOCYTES PERCENT AUTO 29.5 % (16.0-40.0); MEAN CORPUSCULAR HEMOGLOBIN 30.9 pg (27.0-32.0); MEAN CORPUSCULAR HGB CONC 34.4 g/dL (31.0-37.0); MONOCYTES ABSOLUTE AUTO 0.8 K/uL (0.0-0.8); MONOCYTES PERCENT AUTO 11.1 % (0.0-15.0); NEUTROPHILS ABSOLUTE AUTO 4.1 K/uL (1.4-5.7); NEUTROPHILS PERCENT AUTO 57.3 % (48.0-80.0); NRBC ABSOLUTE 0 K/uL; PLATELET COUNT,PLT 209 K/uL (150-400); RED BLOOD CELL COUNT 5.01 M/uL (4.50-5.90); WHITE BLOOD CELL COUNT,WBC 7.11 K/uL (4.0-11.0)
[2023-01-30 04:07] LABS: INR 0.99 (0.86-1.11)
[2023-01-30 04:13] LABS: CARBON DIOXIDE,CO2 30.1 mmol/L (21.0-32.0); CREATININE 1.2 mg/dL (0.8-1.3); POTASSIUM,K 3.7 mmol/L (3.5-5.1)
[2023-01-30 04:14] LABS: A/G RATIO 1.1 (0.9-1.6); ALBUMIN 3.5 g/dL (3.4-5.0); BILIRUBIN TOTAL 0.6 mg/dL (0.2-1.0); CALCIUM 8.8 mg/dL (8.5-10.1); EST CRCL DRUG DOSING (CG) 65.79 mL/min; LACTIC ACID 1.2 mmol/L (0.4-2.0); PROTEIN TOTAL,TP 6.8 g/dL (6.4-8.2)
== END 2023-01-30 05:01 | disposition home or self-care (01) ==
LOC: MW.ED 02:43
DX: R10.9 Unspecified abdominal pain (principal); K21.9 Gastro-esophageal reflux disease without esophagitis; E78.00 Pure hypercholesterolemia, unspecified; E66.9 Obesity, unspecified; F17.210 Nicotine dependence, cigarettes, uncomplicated; Z68.36 Body mass index [BMI] 36.0-36.9, adult; Z88.6 Allergy status to analgesic agent; Z79.899 Other long term (current) drug therapy
CPT/HCPCS: 36415; 80053; 83605; 83690; 84484; 85025; 85610; 93005; 96361; 96374; 96375; 99284; A9270; J2270; J3490; J7030; 93010

== ENCOUNTER 2023-01-31 12:15 | Emergency (ER) | payer MEDICAID | END 2023-01-31 12:56 | disposition left against medical advice (07) | LOC: MW.ED 12:15 | DX: Z53.21 Procedure and treatment not carried out due to patient leaving prior to being seen by health care provider (principal) ==

== ENCOUNTER 2023-01-31 15:00 | Emergency (ER) | payer MEDICAID ==
[2023-01-31] MEDS ORDERED: Lidocaine 4% 1 each Patch TOP PRN (15:59)
[2023-01-31] MEDS ORDERED: Cyclobenzaprine 10 MG Tab PO ONE (15:59)
[2023-01-31] MEDS ORDERED: Aluminum Hydroxide/Magnesium Hydroxide/Simethicone XS Susp 30 ML Cup PO ONE (16:18)
== END 2023-01-31 17:38 | disposition home or self-care (01) ==
LOC: MW.ED 15:00
DX: M54.6 Pain in thoracic spine (principal); K21.9 Gastro-esophageal reflux disease without esophagitis; Z88.6 Allergy status to analgesic agent; Z79.899 Other long term (current) drug therapy
CPT/HCPCS: 99283; A9270

== ENCOUNTER 2023-02-12 07:31 | Day surgery (SDC) | payer MEDICAID ==
[2023-02-12] MEDS ORDERED: fentaNYL 100 MCG/2 ML SDV ONE (08:56)
[2023-02-12] MEDS ORDERED: Propofol 200 MG/20 ML SDV ONE ×2 (08:59)
[2023-02-12] MEDS ORDERED: Esmolol 100 MG/10 ML SDV ONE (09:18)
[2023-02-12] MEDS ORDERED: Lactated Ringers 1,000 ML IV SCH (09:30)
== END 2023-02-12 10:35 | disposition home or self-care (01) ==
LOC: MW.SDS 07:31
PROVIDERS: ATTEND Surgery
DX: K29.50 Unspecified chronic gastritis without bleeding (principal); B96.81 Helicobacter pylori [H. pylori] as the cause of diseases classified elsewhere; K21.00 Gastro-esophageal reflux disease with esophagitis, without bleeding; K25.9 Gastric ulcer, unspecified as acute or chronic, without hemorrhage or perforation; K92.0 Hematemesis; M17.9 Osteoarthritis of knee, unspecified; Z88.6 Allergy status to analgesic agent; F17.210 Nicotine dependence, cigarettes, uncomplicated
CPT/HCPCS: 43239; J2704; J3010; J3490; J7120; 00731

== ENCOUNTER 2023-04-17 16:15 | Emergency (ER) | payer MEDICAID ==
[2023-04-17] MEDS ORDERED: Dexamethasone 10 MG/ML SDV IM STA (17:23)
[2023-04-17] MEDS ORDERED: Morphine 4 MG/ML Syringe IM ONE (17:23)
== END 2023-04-17 17:55 | disposition home or self-care (01) ==
LOC: MW.ED 16:15
DX: M54.6 Pain in thoracic spine (principal); M25.569 Pain in unspecified knee; Z79.899 Other long term (current) drug therapy; Z88.6 Allergy status to analgesic agent
CPT/HCPCS: 96372; 99283; J1100; J2270

== ENCOUNTER 2023-04-23 00:22 | Emergency (ER) | payer MEDICAID ==
[2023-04-23] MEDS ORDERED: Sodium Chloride 0.9% 2.5 ML Syringe FLUSH PRN (00:25)
[2023-04-23] MEDS ORDERED: Sodium Chloride 0.9% 10 ML Syringe FLUSH PRN (00:25)
[2023-04-23] MEDS ORDERED: Alum Hydro/Mag Hydro/Simeth XS 15 ML, Lidocaine 2% 5 ML PO ONE ×2 (00:47)
[2023-04-23 00:52] LABS: BASOPHILS ABSOLUTE AUTO 0.07 K/uL (0.00-0.20); BASOPHILS PERCENT AUTO 0.8 % (0.0-1.0); EOSINOPHILS ABSOLUTE AUTO 0.03 K/uL (0.00-0.45); EOSINOPHILS PERCENT AUTO 0.4 % (0.0-6.0); HEMOGLOBIN 15.5 g/dL (14.0-18.0); IMMATURE GRAN ABSOLUTE AUTO 0.02 K/uL (0.00-0.05); IMMATURE GRAN PERCENT AUTO 0.2 % (0.0-0.4); LYMPHOCYTES ABSOLUTE AUTO 2.41 K/uL (1.00-4.80); LYMPHOCYTES PERCENT AUTO 28.2 % (24.0-44.0); MEAN CORPUSCULAR HEMOGLOBIN 31.3 pg (28.0-32.0); MEAN CORPUSCULAR HGB CONC 35.2 g/dL (32.0-36.0); MEAN CORPUSCULAR VOLUME 88.7 fL (83.0-99.0); MONOCYTES ABSOLUTE AUTO 0.67 K/uL (0.00-0.80); MONOCYTES PERCENT AUTO 7.8 % (0.0-8.0); NEUTROPHILS ABSOLUTE AUTO 5.35 K/uL (1.80-7.70); NEUTROPHILS PERCENT AUTO 62.6 % (41.0-71.0); PLATELET COUNT,PLT 230 K/uL (150-400); RED BLOOD CELL COUNT 4.96 M/uL (4.52-5.90); WHITE BLOOD CELL COUNT,WBC 8.55 K/uL (3.9-11.3)
[2023-04-23 01:06] LABS: A/G RATIO 1.1 (0.9-1.6); ALBUMIN 3.8 g/dL (3.4-5.0); BILIRUBIN TOTAL 1.2 mg/dL (0.2-1.0); CALCIUM 9.4 mg/dL (8.5-10.1); CARBON DIOXIDE,CO2 27.8 mmol/L (21.0-32.0); CREATININE 1.1 mg/dL (0.8-1.3); EST CRCL DRUG DOSING (CG) 71.78 mL/min; POTASSIUM,K 3.9 mmol/L (3.5-5.1); PROTEIN TOTAL,TP 7.2 g/dL (6.4-8.2)
[2023-04-23 01:17] LABS: LACTIC ACID 1.4 mmol/L (0.4-2.0)
[2023-04-23] MEDS ORDERED: Calcium Carbonate 500 MG Tab.Chew PO ONE (02:30)
[2023-04-23] MEDS ORDERED: Pantoprazole 40 MG Tab.CR PO STA (02:30)
[2023-04-23] MEDS ORDERED: Famotidine 20 MG/2 ML SDV IVPUSH ONE (02:32)
[2023-04-23] MEDS ORDERED: Iopamidol 755 MG/ML 500 ML Multipack Bottle IVPUSH ONE (02:36)
== END 2023-04-23 05:08 | disposition home or self-care (01) ==
LOC: MW.ED 00:22
DX: K29.70 Gastritis, unspecified, without bleeding (principal); Z79.899 Other long term (current) drug therapy; Z88.6 Allergy status to analgesic agent
CPT/HCPCS: 36415; 71045; 74177; 80053; 83605; 83690; 84484; 85025; 93005; 96374; 99285; A9270; J3490; Q9967; 93010; 99284